=== PATIENT | female | born 1990 | race Caucasian/White ===

== ENCOUNTER 2017-02-08 08:34 | Emergency (ER) | payer OTHER ==
[2017-02-08 09:01] VITALS: BP 110/77
[2017-02-08] MEDS ORDERED: Albuterol 2.5 MG/3 ML NEB.SOL* (0.083%) INH ONE ×3 (09:07→10:43)
[2017-02-08] MEDS ORDERED: predniSONE TAB* 20 MG PO ONE (09:07)
[2017-02-08] MEDS ORDERED: Ipratropium 0.5MG/2.5ML NEB* 0.5 MG/2.5 ML NEB.SOLN INH ONE ×2 (09:07→10:43)
--- NOTE | 2017-02-08 09:11 | UC ---
Respiratory Complaint HPI - HPI Summary HPI Summary: 26 yo female with onset of runny nose and sneezing yesterday during the night she started wheezing and feeling SOB no CP no fever similar episode in grade school remembers needing steroids and ? neb - History of Current Complaint Chief Complaint: UCRespiratory Stated Complaint: RESPIRATORY Time Seen by Provider: 02/08/17 08:54 Hx Obtained From: Patient Hx Last Menstrual Period: 02/05/17 Onset/Duration: Gradual Onset, Lasting Days Timing: Constant Severity Initially: Mild Severity Currently: Moderate Pain Intensity: 2 Pain Scale Used: 0-10 Numeric Character: Cough: Nonproductive Aggravating Factors: Allergens - ?, Exertion, Recumbent Position Alleviating Factors: Upright Position Associated Signs And Symptoms: Positive: Dyspnea, Wheezing, Nasal Congestion Related History: Seasonal Allergies - Allergies/Home Medications Allergies/Adverse Reactions: Allergies Allergy/AdvReac Type Severity Reaction Status Date / Time No Known Allergies Allergy Verified 02/08/17 08:53 Home Medications: Home Medications guaiFENesin LIQ* [Robitussin*] 5 mg PO Q4H PRN 02/08/17 [History Confirmed 02/08] PMH/Surg Hx/FS Hx/Imm Hx Previously Healthy: Yes - Surgical History Surgical History: Yes Surgery Procedure, Year, and Place: Tubal lilgation-2015. FALLOPIAN TUBES REMOVED - SEP 2016 - Family History Known Family History: Positive: Respiratory Disease - COPD, Other - aunt who smoked with lung cancer Negative: Cardiac Disease, Hypertension - Social History Alcohol Use: Rare Substance Use Type: None Smoking Status (MU): Never Smoked Tobacco Review of Systems Constitutional: Negative Skin: Negative Eyes: Negative ENT: Nasal Discharge Respiratory: Shortness Of Breath, Cough Cardiovascular: Negative Gastrointestinal: Negative Genitourinary: Negative Motor: Negative Neurovascular: Negative Musculoskeletal: Negative Neurological: Negative Psychological: Negative All Other Systems Reviewed And Are Negative: Yes Physical Exam Triage Information Reviewed: Yes Appearance: Well-Appearing - but with increased WOB, No Pain Distress, Well- Nourished Vital Signs: Initial Vital Signs Temp 97.8 F 02/08/17 08:54 Pulse 88 02/08/17 08:54 Resp 30 02/08/17 08:54 BP 110/77 02/08/17 08:54 Pulse Ox 96 02/08/17 08:54 Eyes: Positive: Conjunctiva Clear ENT: Positive: Hearing grossly normal, Pharynx normal, Nasal congestion, Nasal drainage, TM bulging - Left Neck: Positive: Supple, Nontender, No Lymphadenopathy Respiratory: Positive: Accessory muscle use, Wheezing Cardiovascular: Positive: RRR, No Murmur. Negative: Tachycardia, Bradycardia Musculoskeletal: Positive: Strength Intact, ROM Intact, No Edema Neurological: Positive: Alert Psychological Exam: Normal Skin Exam: Normal UC Diagnostic Evaluation - Laboratory O2 Sat by Pulse Oximetry: 96 - normal/not hypoxic Re-Evaluation - Re-Evaluation First Eval Re-Evaluation Time: 09:47 Change: Improved - mimimal subjective improvement/still wheezing/better air movement Second Eval Re-Evaluation Time: 10:35 Change: Improved - slight/still wheezing PEAK FLOW average around 210 (250 highest) Third Eval Re-Evaluation Time: 12:06 Change: Improved - PESK FLOW 240 (270 highest) , still wheezing but improved. Decreased WOB Respiratory Course/Dx - Differential Dx/Diagnosis Provider Diagnoses: bronchospasm. suspect due to seasonal allergies Discharge - Discharge Plan Condition: Stable Disposition: HOME Prescriptions: Prednisone [Deltasone] 40 mg PO DAILY #10 tab Patient Education Materials: Bronchospasm (ED) Forms: *Work Release Referrals: ADAMARIS Nelson [Primary Care Provider] - As Soon As Possible Additional Instructions: rest use inhaler as instructed take peak flow meter with you if you are not able to blow above 200 you need to go to the ER see your provider first available appt you may need referral for pulmonary function tests or may need to see and asthma and supplier quality specialist TO ER FOR NEW OR WORSENING SYMPTOMS
[2017-02-08] MEDS ORDERED: Ondansetron ODT TAB* 4 MG PO ONE (10:56)
--- NOTE | 2017-02-08 11:16 | RAD ---
Indication: Wheezing. 2 views of the chest including dual energy PA views demonstrate no mediastinal shift. Heart is of normal size and configuration. Lung whitt demonstrate no pleural fluid, pneumonia or pneumothorax. IMPRESSION: No active cardiopulmonary disease is identified.
[2017-02-08] MEDS ORDERED: Albuterol HFA INHALER* 8 gm MDI INH ONE (12:13)
== END 2017-02-08 12:34 | disposition home or self-care (01) ==
LOC: UCCORT 08:34
DX: J98.01 Acute bronchospasm (principal)
CPT/HCPCS: 71020; 99214; A9270-GY; G0463; J7512; J7644

== ENCOUNTER 2017-10-22 10:12 | Emergency (ER) | payer SELFPAY ==
[2017-10-22 11:16] VITALS: BP 128/80
--- NOTE | 2017-10-22 11:30 | UC ---
Throat Pain/Nasal Nikos HPI - HPI Summary HPI Summary: 26 y/o female presents to the urgent care c/o sore throat, BRANDON, stomach, body aches since last night . Pt states she has Hx of strep. Pain is 9/10 w/ swallowing and couldn't sleep last night. Pt has taking Ibuprofen PO to alleviate symptoms. Pt denies cough, SOB, chest pain, N/V/D. - History of Current Complaint Chief Complaint: UCGeneralIllness Stated Complaint: ST Time Seen by Provider: 10/22/17 11:27 Hx Obtained From: Patient Hx Last Menstrual Period: 02/05/17 Onset/Duration: Gradual Onset, Lasting Days - 1 day, Still Present, Worse Since - today Severity: Moderate Pain Intensity: 9 Pain Scale Used: 0-10 Numeric Cough: None Associated Signs & Symptoms: Positive: Dysphagia, Fever - Epiglottits Risk Factors Epiglottis Risk Factors: Negative - Allergies/Home Medications Allergies/Adverse Reactions: Allergies Allergy/AdvReac Type Severity Reaction Status Date / Time No Known Allergies Allergy Verified 10/22/17 11:16 PMH/Surg Hx/FS Hx/Imm Hx Previously Healthy: Yes Respiratory History: Asthma - as a child - Surgical History Surgical History: Yes Surgery Procedure, Year, and Place: Tubal lilgation-2015. FALLOPIAN TUBES REMOVED - SEP 2016 - Family History Known Family History: Positive: Respiratory Disease - COPD, Other - aunt who smoked with lung cancer Negative: Cardiac Disease, Hypertension - Social History Alcohol Use: Rare Substance Use Type: None Smoking Status (MU): Never Smoked Tobacco Review of Systems Constitutional: Fever, Chills Eyes: Negative ENT: Sore Throat, Nasal Discharge Cardiovascular: Negative Gastrointestinal: Negative Genitourinary: Negative Motor: Negative Neurovascular: Negative Musculoskeletal: Negative Neurological: Headache Psychological: Negative Is Patient Immunocompromised?: No All Other Systems Reviewed And Are Negative: Yes Physical Exam Triage Information Reviewed: Yes Vital Signs: Initial Vital Signs Temp 99.1 F 10/22/17 11:10 Pulse 127 10/22/17 11:10 Resp 18 10/22/17 11:10 BP 128/80 10/22/17 11:10 Pulse Ox 98 10/22/17 11:10 - Additional Comments VITAL SIGNS: Reviewed. GENERAL: Patient is a well developed and nourished female who is sitting comfortable in the examining table. Patient is not in any acute respiratory distress. HEAD AND FACE: No signs of trauma. No ecchymosis, hematomas or skull depressions. No sinus tenderness. EYES: PERRLA, EOMI x 2, No injected conjunctiva, no nystagmus. No photophobia. EARS: Hearing grossly intact. Ear canals and tympanic membranes are within normal limits. MOUTH: Positive pharynx with erythema, exudates, palatal petechiae. B/L tonsillar enlargement with exudate. Uvula in midline. NECK: Supple, trachea is midline, Positive anterior cervical lymphadenopathy, no JVD, no carotid bruit, no c-spine tenderness, neck with full ROM. No meningeal signs, no Kernig's or brudzinskis signs. CHEST: Symmetric, no tenderness at palpation LUNGS: Clear to auscultation bilaterally. No wheezing or crackles. CVS: Regular rate and rhythm, S1 and S2 present, no murmurs or gallops appreciated. ABDOMEN: Soft, non-tender. No signs of distention. No rebound no guarding, and no masses palpated. Bowel sounds are normal. EXTREMITIES: FROM in all major joints, no edema, no cyanosis or clubbing. NEURO: Alert and oriented x 3. No acute neurological deficits. Speech is normal and follows commands. SKIN: Dry and warm Throat Pain/Nasal Course/Dx - Course Course Of Treatment: 26 y/o female presents to the urgent care c/o sore throat, BRANDON, stomach, body aches since last night . Pt states she has Hx of strep. Pain is 9/10 w/ swallowing and couldn't sleep last night. Pt has taking Ibuprofen PO to alleviate symptoms. Pt denies cough, SOB, chest pain, N/V/D. Hx obtained. Pt w/ pharyngitis on examination. Rapid strep ordered: result: positive. Strep pharyngitis. Rx Amoxicillin PO and Ibuprofen PO for pain and swelling. PT Advised on hand washing to avoid spreading. Also advised to rest, eat well and avoid strenuous exercise. If symptoms do not improve or worsen advised to return to the urgent care or f/u with her PCP for further evaluation and treatment. PT understood and agreed w/ plan of care - Differential Dx/Diagnosis Differential Diagnosis/HQI/PQRI: Laryngitis, Mononucleosis, Peritonsillar Abscess, Pharyngitis, Tonsillitis Provider Diagnoses: 1- Strep pharyngitis Discharge - Discharge Plan Condition: Stable Disposition: HOME Prescriptions: Amoxicillin PO (*) [Amoxicillin 500 MG CAP*] 500 mg PO Q12H #20 cap Ibuprofen TAB* [Motrin TAB* 800 MG] 800 mg PO Q6H PRN #30 tab PRN Reason: Pain Patient Education Materials: Strep Throat (ED) Referrals: ADAMARIS Nelson [Primary Care Provider] - 3 Days Additional Instructions: 1- Please take the full course of the antibiotic to avoid resistance. 2-Please take ibuprofen PO q6-8hrs prn as instructed after meals to alleviate pain and swelling. Increase fluid intake, eat well, rest and avoid strenuous exercise 3-If symptoms do not improve or worsen please return to the urgent care or f/u with your PCP for further evaluation and treatment.
== END 2017-10-22 12:10 | disposition home or self-care (01) ==
LOC: UCCORT 10:12
DX: J02.0 Streptococcal pharyngitis (principal)
CPT/HCPCS: 87651; 99212; G0463

== ENCOUNTER 2018-05-22 10:26 | Emergency (ER) | payer OTHER ==
[2018-05-22 10:49] VITALS: BP 134/73
--- NOTE | 2018-05-22 11:49 | UC ---
Back Pain HPI - HPI Summary HPI Summary: Patient states that she's had aching in both sides of her low back for the past 4 days. Yesterday she was lifting a box and the discomfort in her left low back increased and radiated into her left leg. She admits to having problems with her back in the past. She denies any frequency, urgency or burning with urination but notes that her urine does look a bit dark. She has no current numbness to motor weakness to her arms or legs no saddle anesthesia and no bowel or bladder dysfunction, abdominal pain or fever. - History of Current Complaint Chief Complaint: UCBackPain Stated Complaint: BACK/KIDNEY PAIN Time Seen by Provider: 05/22/18 11:38 Hx Obtained From: Patient Hx Last Menstrual Period: 04/07/18 Onset/Duration: Gradual Onset Timing: Constant Pain Intensity: 3 Aggravating Factor(s): Movement Associated Signs And Symptoms: Negative: Fever, Weakness, Abdominal Pain, Bladder Incontinence, Bowel Incontinence - Risk Factors AAA Risk Factors: Negative TAD Risk Factors: Negative Cauda Equina Risk Factors: Negative - Allergies/Home Medications Allergies/Adverse Reactions: Allergies Allergy/AdvReac Type Severity Reaction Status Date / Time No Known Allergies Allergy Verified 05/22/18 10:43 PMH/Surg Hx/FS Hx/Imm Hx Previously Healthy: Yes - Surgical History Surgical History: Yes Surgery Procedure, Year, and Place: Tubal lilgation-2015. FALLOPIAN TUBES REMOVED - SEP 2016 - Family History Known Family History: Positive: Respiratory Disease - COPD, Other - aunt who smoked with lung cancer Negative: Cardiac Disease, Hypertension - Social History Occupation: Employed Full-time Alcohol Use: Rare Substance Use Type: None Smoking Status (MU): Never Smoked Tobacco - Immunization History Most Recent Tetanus Shot: UTD Vaccination Up to Date: Yes Review of Systems Constitutional: Negative Skin: Negative Eyes: Negative ENT: Negative Respiratory: Negative Cardiovascular: Negative Gastrointestinal: Negative Genitourinary: Negative Motor: Negative Neurovascular: Negative Musculoskeletal: Other: - low back pain Neurological: Negative Psychological: Negative Is Patient Immunocompromised?: No All Other Systems Reviewed And Are Negative: Yes Physical Exam Triage Information Reviewed: Yes Appearance: Well-Appearing Vital Signs: Initial Vital Signs Temp 97.5 F 05/22/18 10:44 Pulse 82 05/22/18 10:44 Resp 17 05/22/18 10:44 BP 134/73 05/22/18 10:44 Pulse Ox 99 05/22/18 10:44 Vital Signs Reviewed: Yes Eyes: Positive: Conjunctiva Clear ENT: Positive: Normal ENT inspection Neck: Positive: Supple, Nontender, No Lymphadenopathy Respiratory: Positive: Lungs clear, Normal breath sounds Cardiovascular: Positive: RRR, No Murmur Abdomen Description: Positive: Nontender, No Organomegaly, Soft. Negative: Bruit, CVA Tenderness (R), CVA Tenderness (L), Distended, Guarding Bowel Sounds: Positive: Present Musculoskeletal: Positive: No Edema, Other: - Cervical, thoracic and lumbar spine are without deformity or tenderness. Patient notes tenderness with palpation over the paraspinal muscles in the lumbar region. Range of motion in the neck and back is intact but patient notes increased discomfort with flexion at the waist. She has no saddle anesthesia. She is 5 out of 5 strength and 2+ reflexes 4. No tenderness to palpation to either sciatic notch and negative straight leg raise bilaterally. She is normal steady gait. Neurological: Positive: Alert Psychological: Positive: Age Appropriate Behavior Skin Exam: Normal Skin: Negative: rashes Diagnostics - Laboratory Diagnostic Studies Completed/Ordered: u/a=unremarkable. hcg=neg Back Pain Course/Dx - Course Course Of Treatment: no concern for infection, acute abdomen or cauda equina. hx supports a radiculopathy thus will tx with mm relaxor and steroid. - Differential Dx/Diagnosis Provider Diagnoses: Acute low back pain. Episodic lumbar radiculopathy. Discharge - Sign-Out/Discharge Documenting (check all that apply): Patient Departure All imaging exams completed and their final reports reviewed: No Studies - Discharge Plan Condition: Stable Disposition: HOME Prescriptions: Cyclobenzaprine TAB* [Flexeril 10 MG TAB*] 10 mg PO TID PRN #10 tab MDD 3 PRN Reason: Pain - Back methylPREDNISolone [Medrol Dosepak 4 MG*] 0 mg PO .SEE LIVAN INSTRUCTION #1 tab Patient Education Materials: Acute Low Back Pain (ED), Lumbar Radiculopathy (ED ) Forms: *Work Release Referrals: ADAMARIS Nelson [Family Provider] - 5 Days - Billing Disposition and Condition Condition: STABLE Disposition: Home
== END 2018-05-22 12:00 | disposition home or self-care (01) ==
LOC: UCCORT 10:26
DX: M54.5 Low back pain (principal); M54.16 Radiculopathy, lumbar region
CPT/HCPCS: 81003; 84702; 99212; G0463

== ENCOUNTER 2018-06-21 20:54 | Emergency (ER) | payer OTHER ==
--- OUTSIDE RECORDS SUMMARY | 2018-06-21 21:07 | XMS REPORT ---
:1990 External Reference #:[id number] Author Organization [facility] Address [address] [place] [address] Phone [phone] Care Team Providers Name Role Phone Derek Villalobos MD Care Team Information [employer] Unavailable Ladan Velázquez PA Primary Care Physician Unavailable Payers Type Date Identification Numbers Payment Provider Subscriber Commercial Expires: Policy Number: [place] [employer] Raiza Monte 2012 [id number] PayID: [id number] [address] [place] [address] Medicaid Expires: 2018 Policy Number: [id number] Medicaid Raiza Monte PayID: [id number] [address] [place] [address] Commercial Policy Number: [id number] [place] Medicaid Raiza Monte PayID: [id number] [address] [place] [address] Problems Description No Information Family History Date Family Member(s) Problem(s) Comments Father Alive Mother Alive Paternal Grandfather due to Cancer () : (age 93 Paternal Grandmother due to Broke Ribs in Hospital Years) Maternal Grandfather due to Unknown () Causes : (age 78 Maternal Grandmother due to Unknown Years) Causes Social History Type Date Description Comments Marital Status Single Occupation [employer] Use Denies alcohol use Smoking Patient has never smoked Recreational Drug Use Denies Drug Use Exercise Type/Frequency Does not exercise Allergies, Adverse Reactions, Alerts Date Description Reaction Status Severity Comments 05/28/2018 NKDA active Medications Medication Date Status Form Strength Qnty SIG Indications Ordering Provider No Active 05/28/2018 Active Unknown Medications Results Description No Information Procedures Date CPT Code Description Status 05/28/2018 92884 Eye Exam New Patient Intermediate Completed 12/18/2014 99784 Anesthesia, Tubal Ligation/Transection Completed Plan of Care 05/28/2018 - Vladimir Nava [id number] Acute atopic conjunctivitis, bilateralComments:- warm compresses- artificial tears: can use 4-6 times daily- neomycin/polymyxin/dexamethasone 1 drop each eye 3 times daily for 5 dayscan also consider over the counter:- topical anti-histamine such as zaditor in each eye dailyFollow up:please call with ? or concerns
--- NOTE | 2018-06-21 21:10 | UC ---
Throat Pain/Nasal Nikos HPI - HPI Summary HPI Summary: 27 y/o female presents to the urgent care c/o sore throat and B/L ear pain since yesterday. Pt reports pain w/ swallowing is 7/10 and radiating to her Rt ear. Pt has mild nasal congestion w/ clear nasal discharge. Pt has not taking anything to alleviate symptoms. Pt denies fever, chills, cough, SOB, chest pain , abdominal pain, N/V/D. - History of Current Complaint Stated Complaint: SORE THROAT,EARS Time Seen by Provider: 06/21/18 21:08 Hx Obtained From: Patient Hx Last Menstrual Period: 04/07/18 Onset/Duration: Gradual Onset, Lasting Days - 1 day, Still Present, Worse Since - today Severity: Moderate Pain Intensity: 7 - sore throat Pain Scale Used: 0-10 Numeric Cough: None Associated Signs & Symptoms: Positive: Dysphagia, Nasal Discharge - clear. Negative: Fever - Epiglottits Risk Factors Epiglottis Risk Factors: Negative - Allergies/Home Medications Allergies/Adverse Reactions: Allergies Allergy/AdvReac Type Severity Reaction Status Date / Time No Known Allergies Allergy Verified 06/21/18 21:19 PMH/Surg Hx/FS Hx/Imm Hx Previously Healthy: Yes Respiratory History: Asthma - as a child - Surgical History Surgical History: Yes Surgery Procedure, Year, and Place: Tubal lilgation-2015. FALLOPIAN TUBES REMOVED - SEP 2016 - Family History Known Family History: Positive: Respiratory Disease - COPD, lung CA Negative: Cardiac Disease, Hypertension - Social History Occupation: Employed Full-time Lives: With Family Alcohol Use: Rare Substance Use Type: None Smoking Status (MU): Never Smoked Tobacco - Immunization History Most Recent Tetanus Shot: UTD Vaccination Up to Date: Yes Review of Systems Constitutional: Negative Skin: Negative Eyes: Negative ENT: Ear Ache - B/L ear pain and pressure, Nasal Discharge - clear Respiratory: Negative Cardiovascular: Negative Gastrointestinal: Negative Genitourinary: Negative Motor: Negative Neurovascular: Negative Musculoskeletal: Negative Neurological: Negative Psychological: Negative Is Patient Immunocompromised?: No All Other Systems Reviewed And Are Negative: Yes Physical Exam - Summary Physical Exam Summary: VITAL SIGNS: Reviewed. GENERAL: Patient is a well developed and nourished obese female who is sitting comfortable in the examining table. Patient is not in any acute respiratory distress. HEAD AND FACE: No signs of trauma. No ecchymosis, hematomas or skull depressions. No sinus tenderness. EYES: PERRLA, EOMI x 2, No injected conjunctiva, no nystagmus. No photophobia. EARS: Hearing grossly intact. Ear canals and tympanic membranes are within normal limits. MOUTH: Positive pharynx with erythema, no exudates, palatal petechiae. B/L tonsillar enlargement with no exudate. Uvula in midline. NECK: Supple, trachea is midline, Positive anterior cervical lymphadenopathy, no JVD, no carotid bruit, no c-spine tenderness, neck with full ROM. No meningeal signs, no Kernig's or brudzinskis signs. CHEST: Symmetric, no tenderness at palpation LUNGS: Clear to auscultation bilaterally. No wheezing or crackles. CVS: Regular rate and rhythm, S1 and S2 present, no murmurs or gallops appreciated. ABDOMEN: Soft, non-tender. No signs of distention. No rebound no guarding, and no masses palpated. Bowel sounds are normal. EXTREMITIES: FROM in all major joints, no edema, no cyanosis or clubbing. NEURO: Alert and oriented x 3. No acute neurological deficits. Speech is normal and follows commands. SKIN: Dry and warm Triage Information Reviewed: Yes Throat Pain/Nasal Course/Dx - Course Course Of Treatment: 27 y/o female presents to the urgent care c/o sore throat and B/L ear pain since yesterday. Pt reports pain w/ swallowing is 7/10 and radiating to her Rt ear. Pt has mild nasal congestion w/ clear nasal discharge. Pt has not taking anything to alleviate symptoms. Pt denies fever, chills, cough , SOB, chest pain, abdominal pain, N/V/D. Hx obtained. Rapid strep ordered, result: negative. Viral pharyngitis.Pt Rx ibuprofen PO to alleviates symptoms of pain and swelling. Advised on hand washing to avoid spreading. Pt advised to rest, eat well and avoid strenuous exercise. If symptoms do not improve or worsen advised to return to the urgent care or f/u with her PCP for further evaluation and treatment. Pt understood and agreed w/ plan of care. - Differential Dx/Diagnosis Differential Diagnosis/HQI/PQRI: Mononucleosis, Otitis Media, Pharyngitis, Sinusitis, Tonsillitis Provider Diagnoses: 1- Pharyngitis Discharge - Sign-Out/Discharge Documenting (check all that apply): Patient Departure - D/c home All imaging exams completed and their final reports reviewed: No Studies - Discharge Plan Condition: Stable Disposition: HOME Prescriptions: Ibuprofen TAB* [Motrin TAB* 600 MG] 600 mg PO Q6H PRN #30 tab PRN Reason: Sore Throat Patient Education Materials: Pharyngitis (ED) Forms: *Work Release Referrals: Simin Brand MD [Primary Care Provider] - 3 Days Additional Instructions: 1-Please take ibuprofen PO q6-8hrs prn as instructed after meals to alleviate pain and swelling. Increase fluid intake, eat well, rest and avoid strenuous exercise 2-If symptoms do not improve or worsen please return to the urgent care or f/u with your PCP for further evaluation and treatment. - Billing Disposition and Condition Condition: STABLE Disposition: Home
[2018-06-21 21:18] VITALS: BP 104/75
== END 2018-06-21 21:50 | disposition home or self-care (01) ==
LOC: UCCORT 20:54
DX: J02.9 Acute pharyngitis, unspecified (principal)
CPT/HCPCS: 87651; 99212; G0463

== ENCOUNTER 2018-07-30 14:21 | Emergency (ER) | payer OTHER ==
[2018-07-30 15:35] VITALS: BP 118/66
--- NOTE | 2018-07-30 15:38 | UC ---
Throat Pain/Nasal Nikos HPI - History of Current Complaint Chief Complaint: UCGeneralIllness Stated Complaint: ST,BRANDON,NAUSEA,BILATERAL EAR COMPLAINT Time Seen by Provider: 07/30/18 15:37 Hx Last Menstrual Period: 07/24/18 ?: No - BTL Onset/Duration: Sudden Onset Pain Intensity: 6 Pain Scale Used: 0-10 Numeric Associated Signs & Symptoms: Positive: Other - nausea, tenderness L cervical. - Allergies/Home Medications Allergies/Adverse Reactions: Allergies Allergy/AdvReac Type Severity Reaction Status Date / Time No Known Allergies Allergy Verified 07/30/18 15:29 Home Medications: Home Medications Acetaminophen [Extra Strength Non-Aspirin] 1,000 mg PO ONCE PRN 07/30/18 [ History Confirmed 07/30/18] PMH/Surg Hx/FS Hx/Imm Hx Previously Healthy: Yes Endocrine History: Other - obesity - Surgical History Surgical History: Yes Surgery Procedure, Year, and Place: Tubal lilgation-2015. FALLOPIAN TUBES REMOVED - SEP 2016 - Family History Known Family History: Positive: Respiratory Disease - COPD, lung CA, Other - aunt who smoked with lung cancer Negative: Cardiac Disease, Hypertension - Social History Alcohol Use: Rare Substance Use Type: None Smoking Status (MU): Never Smoked Tobacco - Immunization History Most Recent Tetanus Shot: UTD Vaccination Up to Date: Yes Review of Systems All Other Systems Reviewed And Are Negative: Yes Constitutional: Positive: Fever, Chills, Fatigue Skin: Positive: Negative Eyes: Positive: Negative ENT: Positive: Sore Throat, Ear Ache Respiratory: Positive: Negative Cardiovascular: Positive: Negative Gastrointestinal: Positive: Nausea Neurological: Positive: Headache. Negative: Weakness Physical Exam Triage Information Reviewed: Yes Appearance: Well-Appearing, No Pain Distress Vital Signs: Initial Vital Signs Temp 97.6 F 07/30/18 15:30 Pulse 101 07/30/18 15:30 Resp 24 07/30/18 15:30 BP 118/66 07/30/18 15:30 Pulse Ox 99 07/30/18 15:30 Vital Signs Reviewed: Yes Eye Exam: Normal ENT: Positive: Pharyngeal erythema, TMs normal, Tonsillar swelling, Tonsillar exudate, Uvula midline. Negative: Hoarse voice, Sinus tenderness Neck: Positive: Supple, Tenderness @ - L cervical lymphadenopathy, Enlarged Nodes @ - L cervical. Negative: Nuchal Rigidity Respiratory Exam: Normal Cardiovascular Exam: Normal Neurological: Positive: Alert Skin Exam: Normal Throat Pain/Nasal Course/Dx - Course Assessment/Plan: Sore throat, lymphadenopathy on L side, chills, no cough, and exudates x3 days. +exposure to strep at home. rapid strep: +. will tx - Differential Dx/Diagnosis Differential Diagnosis/HQI/PQRI: Pharyngitis, Tonsillitis, URI Provider Diagnoses: strep pharyngitis Discharge - Sign-Out/Discharge Documenting (check all that apply): Patient Departure All imaging exams completed and their final reports reviewed: No Studies - Discharge Plan Condition: Good Disposition: HOME Patient Education Materials: Pharyngitis (ED) Referrals: Simin Brand MD [Primary Care Provider] - - Billing Disposition and Condition Condition: GOOD Disposition: Home
== END 2018-07-30 16:01 | disposition home or self-care (01) ==
LOC: UCCORT 14:21
DX: J02.0 Streptococcal pharyngitis (principal); B95.0 Streptococcus, group A, as the cause of diseases classified elsewhere
CPT/HCPCS: 87651; 99212; G0463

== ENCOUNTER 2019-07-26 16:39 | Emergency (ER) | payer OTHER ==
[2019-07-26 17:00] VITALS: BP 108/73
--- NOTE | 2019-07-26 17:38 | UC ---
Hand/Wrist HPI - HPI Summary HPI Summary: Pt c/o of bilateral wrist pain that has worsened over the last two weeks. 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 Pt denies recent trauma or frequent repetitive work. Pt states that pain worsens at end of day and has episodic numbness and tingling in distal finger tips in bilateral hands - History Of Current Complaint Chief Complaint: UCUpperExtremity Stated Complaint: BILATERAL WRIST PAIN Time Seen by Provider: 07/26/19 17:25 Hx Obtained From: Patient Hx Last Menstrual Period: 07/10/19 has had tubal ?: No Onset/Duration: Gradual Onset, Lasting Weeks, Still Present Severity Initially: Mild Severity Currently: Moderate Pain Intensity: 6 Character Of Pain: Dull, Aching, Stiffness, Burning Alleviating Factor(s): Rest Associated Signs And Symptoms: Positive: Weakness, Numbness/Tingling Related History: Dominant Hand Right - Risk Factors Compartment Syndrome Risk Factors: Pain - Allergies/Home Medications Allergies/Adverse Reactions: Allergies Allergy/AdvReac Type Severity Reaction Status Date / Time No Known Allergies Allergy Verified 07/26/19 16:59 PMH/Surg Hx/FS Hx/Imm Hx Previously Healthy: Yes - Surgical History Surgical History: Yes Surgery Procedure, Year, and Place: Tubal lilgation-2015. FALLOPIAN TUBES REMOVED - SEP 2016. CHOLYCYSTECTOMY-2017. TONSILLECTOMY DECEMBER 2018 - Family History Known Family History: Positive: Respiratory Disease - COPD, lung CA, Other - aunt who smoked with lung cancer, Non-Contributory Negative: Cardiac Disease, Hypertension - Social History Occupation: Employed Full-time Lives: With Family Alcohol Use: Rare Substance Use Type: None Smoking Status (MU): Never Smoked Tobacco Have You Smoked in the Last Year: No - Immunization History Most Recent Tetanus Shot: UTD Vaccination Up to Date: Yes Review of Systems All Other Systems Reviewed And Are Negative: Yes Constitutional: Positive: Negative Skin: Positive: Negative Eyes: Positive: Negative ENT: Positive: Negative Respiratory: Positive: Negative Cardiovascular: Positive: Negative Gastrointestinal: Positive: Negative Genitourinary: Positive: Negative Motor: Positive: Weakness, Other - arthralgia Neurovascular: Positive: Negative Musculoskeletal: Positive: Arthralgia - bilateral Neurological: Positive: Negative Psychological: Positive: Negative Is Patient Immunocompromised?: No Physical Exam Triage Information Reviewed: Yes Appearance: Pain Distress - with wrsit evaluation Vital Signs: Initial Vital Signs Temp 97.8 F 07/26/19 16:56 Pulse 74 07/26/19 16:56 Resp 16 07/26/19 16:56 BP 108/73 07/26/19 16:56 Pulse Ox 100 07/26/19 16:56 Vital Signs Reviewed: Yes Eye Exam: Normal ENT Exam: Normal Dental Exam: Normal Neck exam: Normal Respiratory: Positive: No respiratory distress Musculoskeletal Exam: Normal Musculoskeletal: Positive: Strength Limited @ - bilateral wrist with pressure and movement Neurological Exam: Normal Psychological Exam: Normal Skin Exam: Normal Hand/Wrist Course/Dx - Differential Dx/Diagnosis Differential Diagnosis/HQI/PQRI: Bursitis, Carpal Tunnel Syndrome, Tendonitis Provider Diagnosis: Bilateral wrist pain Discharge ED - Sign-Out/Discharge Documenting (check all that apply): Patient Departure All imaging exams completed and their final reports reviewed: No Studies - Discharge Plan Condition: Stable Disposition: HOME Patient Education Materials: Arthralgia (ED), Safe Use of NSAIDs (ED) Referrals: Maryuri Newell NP [Primary Care Provider] - If Needed Konstantin Orozco MD [Medical Doctor] - If Needed Milly Asif MD [Medical Doctor] - If Needed - Billing Disposition and Condition Condition: STABLE Disposition: Home
== END 2019-07-26 17:48 | disposition home or self-care (01) ==
LOC: UCCORT 16:39
DX: M25.531 Pain in right wrist (principal); M25.532 Pain in left wrist; R20.0 Anesthesia of skin; R20.2 Paresthesia of skin
CPT/HCPCS: 99211; G0463

== ENCOUNTER 2019-09-25 13:18 | Emergency (ER) | payer OTHER ==
--- OUTSIDE RECORDS SUMMARY | 2019-09-25 14:04 | XMS REPORT | Continuity of Care Document ---
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 Onset: 08/07/2015 subsequent encounter Body mass index 30+ - obesity Perez Owens M.D. Onset: 08/07/2015 Ingestion dermatitis due to food Pema Farrell M.D. Onset: 07/24/2015 Social History Type Date Description Comments Sex Unknown ETOH Use Rarely consumes alcohol Tobacco Use Start: Unknown Patient has never smoked Recreational Drug Use Never Used Drugs Allergies, Adverse Reactions, Alerts Description No Known Drug Allergies Medications Description No Active Medications Immunizations CPT Code Status Date Vaccine Lot # [id number] Given Unknown Influenza Vaccine Vital Signs Date Vital Result Comment 09/15/2019 9:48am Height 63.75 inches 5'3.75" Weight 228.00 lb Weight 103.421 kg Respiratory Rate 18 /min Heart Rate 74 /min O2 % BldC Oximetry 98 % BP Systolic 101 mmHg BP Diastolic 60 mmHg BMI (Body Mass Index) 39.4 kg/m2 10/29/2016 11:03am Height 63.75 inches 5'3.75" Weight 223.00 lb Weight 101.153 kg Respiratory Rate 16 /min Heart Rate 69 /min O2 % BldC Oximetry 98 % BP Systolic 105 mmHg BP Diastolic 73 mmHg BMI (Body Mass Index) 38.6 kg/m2 Results Test Acquired Date Facility Test Result H/L Range Note Laboratory test 09/15/2019 [facility] Egg (Yolk) < 0.10 kU/L Class [address] [place] [address] [phone] Egg White 0.23 kU/L Class 0/I 1 Cat Hair/Dander <0.10 kU/L Class 0 Dog Hair/Dander <0.10 kU/L Class 0 D Farinae Mite 0.37 kU/L Class I D Pteronyssinus 0.46 kU/L Class I Rast Common Silver Birch T3 <pending> [place],White <0.10 kU/L Class 0 Maple/Beals Ige T001 <0.10 kU/L Class 0 Luis,White <0.10 kU/L Class 0 [place] Tree <0.10 kU/L Class 0 Elm,Guatemalan (White) <0.10 kU/L Class 0 Forrest,White <0.10 kU/L Class 0 Yecenia,Pearson Ige T002 <0.10 kU/L Class 0 Beech (Guatemalan) T005 <0.10 kU/L Class 0 Rast Durham Black T10 <pending> T022 Pecan Tree <0.10 kU/L Class 0 Guttenberg,Guatemalan T061 <0.10 kU/L Class 0 Redby,Black <0.10 kU/L Class 0 Abner <0.10 kU/L Class 0 Orchard Grass <0.10 kU/L Class 0 Ragweed,Short/ <0.10 kU/L Class 0 Bailey Elder,Rough W016 <0.10 kU/L Class 0 Rast Common Pigweed <pending> Cocklebur <0.10 kU/L Class 0 2 Rast Wagner's Quarters w10 <pending> Rast Plantain, North Korean W9 <pending> Alternaria Alternata <0.10 kU/L Class 0 Apergillis Fumigatus Ige <0.10 kU/L Class 0 Cladosporium Herbarum <0.10 kU/L Class 0 Setomelanomma Rostrat M008 Ige <0.10 kU/L Class 0 Penicillium Not <0.10 kU/L Class 0 Allergy Flea (Cat/Dog) Ige <pending> Birch,White <0.10 kU/L Class 0 Reeves,White <0.10 kU/L Class 0 Plantain,North Korean <0.10 kU/L Class 0 Pigweed,Rough <0.10 kU/L Class 0 Lambs Quarter <0.10 kU/L Class 0 Forrest,White <pending> Redby,Black <pending> Durham Tree Ige T010 <0.10 kU/L Class 0 1 Levels of Specific IgE Class Description of Class ----- < 0.10 0 Negative 0.10 - 0.31 0/I Equivocal/Low 0.32 - 0.55 I Low 0.56 - 1.40 II Moderate 1.41 - 3.90 III High 3.91 - 19.00 IV Very High 19.01 - 100.00 V Very High >100.00 Very High 2 Test(s) [id number]-WeG Julius Luna were developed and had performance characteristics determined by [facility]. These tests have not been cleared or approved by the U.S. Food and Drug Administration. The FDA has determined that such clearance or approval is not necessary. These tests are used for clinical purposes. These should not be regarded as investigational or for research. Performed at: [address] [id number] Rabbler: Viridiana Toure MD, Phone: [phone] Procedures Description No Information Available Medical Devices Description No Information Available Encounters Type Date Location Provider Dx Diagnosis Office Visit 09/15/2019 [facility] Trey Jin.9 Allergic rhinitis, 10:00a LAKE unspecified Z91.012 Allergy to eggs Assessments Date Code Description Provider 09/15/2019 J30.9 Allergic rhinitis, unspecified LAKE Jin 09/15/2019 Z91.012 Allergy to eggs LAKE Jin Plan of Treatment Future Appointment(s):09/29/2019 10:20 am - [facility] Jin at [facility]09/29/2019 11:00 am - Allergy Testing at [facility] Functional Status Description No Information Available Mental Status Description No Information Available Referrals Description No Information Available
[2019-09-25 14:55] VITALS: BP 107/67
--- NOTE | 2019-09-25 14:57 | UC ---
Knee Pain HPI - HPI Summary HPI Summary: Pt was at work today when she tripped and fell landing on both knees and catching herself with her outstretched right hand. Ambulates without difficulty. Denies hitting her head and no neck pain. - History of Current Complaint Chief Complaint: UCGeneralIllness Stated Complaint: RIGHT KNEE AND WRIST INJURY S/P FALL AT WORK Time Seen by Provider: 09/25/19 14:46 Hx Obtained From: Patient Hx Last Menstrual Period: 08/28/19 (b/l salpingectomy) ?: No Onset/Duration: Sudden Onset Severity Initially: Moderate Severity Currently: Mild Pain Intensity: 6 Character: Dull, Aching Aggravating Factor(s): Movement Alleviating Factor(s): Rest Associated Signs And Symptoms: Positive: Negative Able to Bear Weight: Yes - Allergies/Home Medications Allergies/Adverse Reactions: Allergies Allergy/AdvReac Type Severity Reaction Status Date / Time No Known Allergies Allergy Verified 09/25/19 14:47 PMH/Surg Hx/FS Hx/Imm Hx Previously Healthy: Yes - Surgical History Surgical History: Yes Surgery Procedure, Year, and Place: Tubal lilgation-2015. FALLOPIAN TUBES REMOVED - SEP 2016. CHOLYCYSTECTOMY-2017. TONSILLECTOMY DECEMBER 2018 - Family History Known Family History: Positive: Respiratory Disease - COPD, lung CA, Other - aunt who smoked with lung cancer, Non-Contributory Negative: Cardiac Disease, Hypertension - Social History Alcohol Use: Rare Substance Use Type: None Smoking Status (MU): Never Smoked Tobacco Have You Smoked in the Last Year: No - Immunization History Most Recent Tetanus Shot: UTD Vaccination Up to Date: Yes Review of Systems All Other Systems Reviewed And Are Negative: Yes Musculoskeletal: Positive: Other: - Bilateral knee pain but right is worse than the left. Right wrist pain mostly with flexion and extension Is Patient Immunocompromised?: No Physical Exam Triage Information Reviewed: Yes Appearance: Well-Appearing, No Pain Distress, Well-Nourished Vital Signs: Initial Vital Signs Temp 97.7 F 09/25/19 14:48 Pulse 80 09/25/19 14:48 Resp 22 09/25/19 14:48 BP 107/67 09/25/19 14:48 Pulse Ox 100 09/25/19 14:48 Vital Signs Reviewed: Yes Musculoskeletal: Positive: Strength Intact, ROM Intact, Other: - Patellar and knee ligaments are intact. Both knees with full ROM without pain. Right knee with minial pain on palpation over patella, no bruising, erythema, swelling or deformity. Right wrist with full ROM, minimal pain with flexion/ extension. Good finger strength with flexion/extension against resistance. Scaphoid non- tender. Knee Pain Course/Dx - Course Course Of Treatment: Right knee x-ray: Negative Right wrist x-ray: FINDINGS: FINDINGS: The soft tissues are unremarkable. The bone mineralization is within normal limits. There is a well-corticated ossific fragment seen along the ulnar styloid process.. Anatomic alignment is maintained. The joint spaces are preserved. IMPRESSION: 1. Chronic appearing ossific fragment about the ulnar styloid process. Correlate with point tenderness. The pt has minimal tenderness over the distal wrist ulnar side, but not at the styloid process. A cock-up splint was applied and pt is to follow up with the orthopedist in the next 1-2 days. - Differential Dx/Diagnosis Provider Diagnosis: Wrist sprain, Contusion of knee, left, Contusion of right knee Discharge ED - Sign-Out/Discharge Documenting (check all that apply): Patient Departure All imaging exams completed and their final reports reviewed: Yes - Discharge Plan Condition: Good Disposition: HOME Patient Education Materials: Wrist Fracture in Adults (ED) Forms: *Work Release Referrals: Sushil Hess MD [Medical Doctor] - Maryuri Newell NP [Primary Care Provider] - Additional Instructions: There is a possibility of a fracture of the right ulnar styloid process, but it could also be a chronic fragment. You are to call the orthopedist tomorrow and make an appointment to be seen in the next 1-2 days. Elevate as much as possible, apply ice to the sore area, Tylenol for pain. Keep the wrist splint on until the orthopedist says you can remove it. - Billing Disposition and Condition Condition: GOOD Disposition: Home
== END 2019-09-25 16:43 | disposition home or self-care (01) ==
LOC: UCCORT 13:18
DX: S63.501A Unspecified sprain of right wrist, initial encounter (principal); S80.02XA Contusion of left knee, initial encounter; S80.01XA Contusion of right knee, initial encounter; M89.8X6 Other specified disorders of bone, lower leg; W01.0XXA Fall on same level from slipping, tripping and stumbling without subsequent striking against object, initial encounter; Y92.9 Unspecified place or not applicable; Y99.0 Civilian activity done for income or pay
CPT/HCPCS: 99212; G0463

== ENCOUNTER 2019-10-06 06:48 | Day surgery (SDC) | payer OTHER ==
[~2019-10-06 06:48] MED LIST: Buffered Lidocaine 1% SYRIN* 1 ML/SYRINGE INTRADERM ONE; Lactated Ringers 1000 ML Bag* 1,000 ML IV SCH
[2019-10-06] MEDS ORDERED: Midazolam* 1 MG/ML 2 ML VIAL (2 MG) ONE (08:25)
[2019-10-06] MEDS ORDERED: fentaNYL* 50 MCG/ML 2 ML VIAL (100 MCG VIAL) ONE (08:25)
[2019-10-06] MEDS ORDERED: Bupivacaine 0.25% SDV* 30 ML ONE (08:28)
[2019-10-06] MEDS ORDERED: Lidocaine 2% PF * 5 ML VIAL ONE (08:41)
[2019-10-06] MEDS ORDERED: Propofol* 10 MG/ML 20 ML BTL ONE (08:49)
[2019-10-06] MEDS ORDERED: Dexamethasone IV* 4 MG/ML 1 ML (4 MG) ONE (08:49)
[2019-10-06] MEDS ORDERED: Ondansetron INJ* 2 MG/ML VIAL ONE (08:49)
[2019-10-06] MEDS ORDERED: Acetaminophen TAB* 325 MG PO PRN (09:06)
[2019-10-06] MEDS ORDERED: Naloxone* 0.4 MG/ML 1 ML VIAL IV PRN (09:06)
[2019-10-06] MEDS ORDERED: PROCHLORPERAZINE INJ 5 MG/ML 2 ML VIAL IV PRN (09:06)
[2019-10-06] MEDS ORDERED: Ketorolac INJ* 30 MG/ML 1 ML VIAL ONE (09:29)
[2019-10-06] MEDS ORDERED: PROCHLORPERAZINE INJ 5 MG/ML 2 ML VIAL ONE (09:42)
[2019-10-06] MEDS ORDERED: HYDROcodone/ACETAMIN 5-325 MG* 1 TAB ONE (09:45)
[2019-10-06 10:17] VITALS: BP 95/56
--- NOTE | 2019-10-06 14:56 | OP ---
OPERATIVE REPORT: DATE OF OPERATION: 10/06/19 DATE OF : 88 SURGEON: Konstantin Orozco MD DRIVING TEACHER: TARAH Malik ANESTHESIOLOGIST: Dr. White. ANESTHESIA: General. PRE-OP DIAGNOSES: 1. Right carpal tunnel syndrome. 2. Right median nerve compression in the proximal forearm. POST-OP DIAGNOSES: 1. Right carpal tunnel syndrome. 2. Right median nerve compression in the proximal forearm. OPERATIVE PROCEDURE: 1. Right endoscopic carpal tunnel release. 2. Right median nerve decompression in the proximal forearm with release of the lacertus fibrosus. INDICATIONS: Ms. Monte has the aforementioned conditions. We had talked about treatment options, r isks and benefits. She wished to proceed. ESTIMATED BLOOD LOSS: 2 mL. COMPLICATIONS: None. FINDINGS: See above and below. DESCRIPTION OF PROCEDURE: Ms. Monte was seen in the preoperative holding area. The correct site, si de, and procedure were identified. We came back to the operating room. The arm was prepped and drap ed in the usual fashion and time-out was performed. The arm was exsanguinated with the Esmarch and the tourniquet was inflated. I made a 1 cm incision j ust ulnar to the palmaris longus tendon. Dissection was carried down. The distal antebrachial fasci a was spread transversely and a 2-prong skin hook was placed underneath it. The carpal tunnel was di lated. The MicroAire endoscopic carpal tunnel system was introduced. When it was in the appropriate location, I elevated the blade. The release was carried out from distal to proximal. Once I comple shreyas the release distally, I released the distal antebrachial fascia proximally with the tenotomy scis sors. Wound was irrigated out and closed with 4-0 Prolene suture. I then made a 2 to 3 cm incision over the proximal forearm just over the lacertus fibrosus. Dissecti on was carried down bluntly. [employer]-[place] retractors were placed to expose the fascia including the lac ertus fibrosus. I then went ahead and released the lacertus fibrosus with the tenotomy scissors. Th e release was completed distally and proximally. Once there was no compression there, the wound was irrigated out. The skin was closed with 4-0 Monocryl suture. Steri-Strips were applied to both side s. 0.25% Marcaine was infiltrated. Soft dressings were applied and she was taken to the recovery ro in stable condition. [id number]/[facility] #: [id number]
== END 2019-10-06 10:27 | disposition home or self-care (01) ==
LOC: OREAST 06:48
PROVIDERS: ATTEND Orthopaedic Surgery Hand Surgery
DX: G56.01 Carpal tunnel syndrome, right upper limb (principal); G56.11 Other lesions of median nerve, right upper limb
CPT/HCPCS: J0780; J1100; J1885; J2250; J2405; J2704; J3010; J3490

== ENCOUNTER 2019-10-20 06:18 | Day surgery (SDC) | payer OTHER ==
[~2019-10-20 06:18] MED LIST changes: +Dexamethasone IV* 4 MG/ML 1 ML (4 MG) IV SLOW PU ONE; +Dexamethasone IV* 4 MG/ML 1 ML (4 MG) ONE; +Famotidine IV* 10 MG/ML 2 ML (20 mg) IV ONE; +Famotidine IV* 10 MG/ML 2 ML (20 mg) ONE
[2019-10-20] MEDS ORDERED: Bupivacaine 0.25% SDV* 30 ML ONE (07:08)
[2019-10-20] MEDS ORDERED: Ketorolac INJ* 30 MG/ML 1 ML VIAL ONE (07:20)
[2019-10-20] MEDS ORDERED: Lidocaine 2% PF * 5 ML VIAL ONE (07:20)
[2019-10-20] MEDS ORDERED: Ondansetron INJ* 2 MG/ML VIAL ONE (07:20)
[2019-10-20] MEDS ORDERED: Propofol* 10 MG/ML 20 ML BTL ONE (07:20)
[2019-10-20] MEDS ORDERED: Midazolam* 1 MG/ML 2 ML VIAL (2 MG) ONE (07:21)
[2019-10-20] MEDS ORDERED: fentaNYL* 50 MCG/ML 5 ML VIAL (250 MCG VIAL) ONE (07:22)
[2019-10-20] MEDS ORDERED: DiMENhydriNATE IV* 50 MG/ML VIAL IV PUSH PRN (07:47)
[2019-10-20] MEDS ORDERED: oxyCODONE/Acetamin 5/325 MG* TAB PO PRN (07:47)
[2019-10-20] MEDS ORDERED: Ondansetron INJ* 2 MG/ML VIAL IV PRN (07:47)
[2019-10-20] MEDS ORDERED: fentaNYL* 50 MCG/ML 2 ML VIAL (100 MCG VIAL) IV PRN (07:47)
[2019-10-20] MEDS ORDERED: Naloxone* 0.4 MG/ML 1 ML VIAL IV PRN (07:47)
[2019-10-20] MEDS ORDERED: DiMENhydriNATE IV* 50 MG/ML VIAL ONE (09:17)
[2019-10-20 09:52] VITALS: BP 109/66
--- NOTE | 2019-10-21 02:15 | OP ---
DATE OF OPERATION: 10/20/19 - [facility] DATE OF : 88 SURGEON: Konstantin Orozco MD MAKE UP ARTIST: TARAH Malik ANESTHESIOLOGIST: Dr. Auguste. ANESTHESIA: General. PRE-OP DIAGNOSES: 1. Left carpal tunnel syndrome. 2. Left median nerve compression in the proximal forearm. POST-OP DIAGNOSES: 1. Left carpal tunnel syndrome. 2. Left median nerve compression in the proximal forearm. OPERATIVE PROCEDURE: 1. Left endoscopic carpal tunnel release. 2. Decompression of the left median nerve in the proximal forearm with release of the lacertus fibrosus. INDICATIONS: Raiza has the nerve compression syndromes. We have done the releases on the right; she has done well with that. She now presents for the left. She understands there is risk associated with this and she was not guaranteed to have the same outcome on the left. ESTIMATED BLOOD LOSS: 2 mL. COMPLICATIONS: None. FINDINGS: See above and below. DESCRIPTION OF PROCEDURE: Ms. Monte was seen in the preoperative holding area. The correct site, side, and procedures were identified. We came back to the operating room where the arm was prepped and draped in the usual fashion and a time- out was performed. The arm was exsanguinated with the Esmarch and the tourniquet inflated. I made a 1 cm transverse incision just ulnar to the palmaris longus tendon. Dissection was carried down through the subcutaneous tissue and the distal antebrachial fascia was split transversely bluntly. A 2-prong skin hook was placed underneath the fascia. I dilated open the carpal tunnel and then the MicroAire endoscopic carpal tunnel system was introduced into the carpal tunnel. When I had it in the appropriate location, I elevated the blade and the release was completed from distal to proximal. Once I completed the release distally, I released the distal antebrachial fascia proximally with the tenotomy scissors. At this point, the release looked very good and complete. The wound was irrigated out. Skin was closed with 4-0 Prolene suture and a Steri-Strip. I then made a 2 to 3 cm transverse incision over the lacertus fibrosus proximally just distal to the antecubital flexion crease. Dissection was carried down through the subcutaneous tissue bluntly. Army-[place] retractors were placed. The lacertus fibrosus was visualized and released in its entirety. This was done with the tenotomy scissors. I completed the release distally and then proximally. At this point, everything was very looking good. There was no compression on the nerve. The wound was irrigated out. The skin was closed with 4-0 Monocryl and Steri- Strips. 0.25% Marcaine was infiltrated around all the operative areas. Soft dressings were applied and she was taken to the recovery room in stable condition. [id number]/[facility] #: [id number] TYLER
== END 2019-10-20 09:50 | disposition home or self-care (01) ==
LOC: OREAST 06:18
PROVIDERS: ATTEND Orthopaedic Surgery Hand Surgery
DX: G56.02 Carpal tunnel syndrome, left upper limb (principal); G56.12 Other lesions of median nerve, left upper limb; J45.909 Unspecified asthma, uncomplicated
CPT/HCPCS: J1100; J1240; J1885; J2250; J2405; J2704; J3010; J3490

== ENCOUNTER 2019-11-09 08:20 | Emergency (ER) | payer OTHER ==
--- OUTSIDE RECORDS SUMMARY | 2019-11-09 08:29 | XMS REPORT | Continuity of Care Document ---
:1990 External Reference #:[id number] Author Name Konstantin Orozco MD (transmitted by agent of provider Charito Nation) Address [address] [place] [id number] Care Team Providers Name Role Phone Radu Mckeon MD - Family Medicine Care Team Information College Service Officer Problems Active Problems Provider Date Sprain of wrist and/or hand Konstantin Orozco MD Onset: 09/28/2019 Lesion of median nerve Konstantin Orozco MD Onset: 08/02/2019 Bilateral carpal tunnel syndrome Konstantin Orozco MD Onset: 08/02/2019 Social History Type Date Description Comments Sex Unknown ETOH Use Denies alcohol use Tobacco Use Start: Unknown Patient has never smoked Smoking Status Reviewed: 09/28/19 Patient has never smoked Allergies, Adverse Reactions, Alerts Description No Known Drug Allergies Medications Description No Active Medications Immunizations Description No Information Available Vital Signs Date Vital Result Comment 09/28/2019 10:34am Height 64.5 inches 5'4.50" Weight 233.50 lb Heart Rate 64 /min BP Systolic 126 mmHg BP Diastolic 78 mmHg Respiratory Rate 16 /min Pain Level 6 BMI (Body Mass Index) 39.5 kg/m2 09/14/2019 9:37am Height 63.5 inches 5'3.50" Weight 232.00 lb Heart Rate 66 /min BP Systolic 128 mmHg BP Diastolic 82 mmHg Respiratory Rate 12 /min Body Temperature 97.2 F Pain Level 5 BMI (Body Mass Index) 40.4 kg/m2 Results Description No Information Available Procedures Description No Information Available Medical Devices Description No Information Available Encounters Type Date Location Provider Dx Diagnosis Office Visit 09/28/2019 [facility] Konstantin Orozco, S63.591A Other specified 10:00a at [place] sprain of right wrist, initial encounter Office Visit 08/02/2019 [facility] Konstantin Orozco, G56.03 Carpal tunnel 11:00a at [place] MD syndrome, bilateral upper limbs G56.13 Other lesions of median nerve, bilateral upper limbs Assessments Date Code Description Provider 09/28/2019 S63.591A Other specified sprain of right wrist, initial Konstantin Orozco MD encounter 09/14/2019 G56.03 Carpal tunnel syndrome, bilateral upper limbs Konstantin Orozco MD 09/14/2019 G56.13 Other lesions of median nerve, bilateral upper Konstantin Orozco MD limbs 08/02/2019 G56.03 Carpal tunnel syndrome, bilateral upper limbs Konstantin Orozco MD 08/02/2019 G56.13 Other lesions of median nerve, bilateral upper Konstantin Orozco MD limbs Plan of Treatment Future Appointment(s):10/14/2019 8:00 am - Konstantin Orozco MD at [facility] at Pbzfpsnl20/13/2020 12:45 pm - Konstantin Orozco MD at [facility] at Mfixnd3510/06/2019 8:30 am - Konstantin Orozco MD at [facility] at Dyoojx7809/28/2019 - Konstantin Orozco [id number] Other specified sprain of right wrist, initial encounterFollow up:Follow up: 3 months Functional Status Description No Information Available Mental Status Description No Information Available Referrals Description No Information Available
--- OUTSIDE RECORDS SUMMARY | 2019-11-09 08:29 | XMS REPORT | Continuity of Care Document ---
:1990 External Reference #:[id number] Author Name Konstantin Orozco MD (transmitted by agent of provider Dick Goode) Address [address] [place] [id number] Care Team Providers Name Role Phone Radu Mckeon MD - Family Medicine Care Team Information Retail Loss Prevention Specialist [phone] Problems Active Problems Provider Date Bilateral carpal tunnel syndrome Konstantin Orozco MD Onset: 08/02/2019 Lesion of median nerve Konstantin Orozco MD Onset: 08/02/2019 Sprain of wrist and/or hand Konstantin Orozco MD Onset: 09/28/2019 Social History Type Date Description Comments Sex Unknown ETOH Use Denies alcohol use Tobacco Use Start: Unknown Patient has never smoked Smoking Status Reviewed: 10/14/19 Patient has never smoked Allergies, Adverse Reactions, Alerts Active Allergies Reaction Severity Comments Date Tramadol Itching 10/14/2019 Inactive Allergies NKDA 08/02/2019 Medications Active Medications SIG Qnty Indications Ordering Provider Date No Active Medications Unknown 10/14/2019 History Medications Tramadol HCL 1-2 tablets by 20tabs Konstantin Orozco, 10/06/2019 - 50mg Tablets mouth every 6 MD 10/12/2019 hours as needed pain No Active Medications Unknown 08/02/2019 - 10/06/2019 Immunizations Description No Information Available Vital Signs Date Vital Result Comment 10/14/2019 7:47am Height 64.5 inches 5'4.50" Weight 234.00 lb Heart Rate 78 /min BP Systolic Sitting 112 mmHg BP Diastolic Sitting 66 mmHg Body Temperature 97.5 F Pain Level 5 O2 % BldC Oximetry 99 % BMI (Body Mass Index) 39.5 kg/m2 09/28/2019 10:34am Height 64.5 inches 5'4.50" Weight 233.50 lb Heart Rate 64 /min BP Systolic 126 mmHg BP Diastolic 78 mmHg Respiratory Rate 16 /min Pain Level 6 BMI (Body Mass Index) 39.5 kg/m2 Results Description No Information Available Procedures Date Code Description Status 10/06/2019 59527 Neuroplasty, Major Peripheral Nerve Arm Or Leg Completed 10/06/2019 15199 Neuroplasty, Major Peripheral Nerve Arm Or Leg Completed 10/06/2019 74250 Neuroplasty, Major Peripheral Nerve Arm Or Leg Completed 10/06/2019 11319 Neuroplasty, Major Peripheral Nerve Arm Or Leg Completed 10/06/2019 36272 Endoscopy Wrist Surg W/Release Of Transverse Carpal Completed Ligament 10/06/2019 99564 Endoscopy Wrist Surg W/Release Of Transverse Carpal Completed Ligament 10/06/2019 77808 Endoscopy Wrist Surg W/Release Of Transverse Carpal Completed Ligament 10/06/2019 85706 Endoscopy Wrist Surg W/Release Of Transverse Carpal Completed Ligament Medical Devices Description No Information Available Encounters Type Date Location Provider Dx Diagnosis Office Visit 09/28/2019 [facility] Konstantin Orozco, S63.591A Other specified 10:00a at [facility] sprain of right wrist, initial encounter Office Visit 08/02/2019 [facility] Konstantin Orozco G56.03 Carpal tunnel 11:00a at [facility] syndrome, bilateral upper limbs G56.13 Other lesions of median nerve, bilateral upper limbs Assessments Date Code Description Provider 10/14/2019 G56.03 Carpal tunnel syndrome, bilateral upper limbs Konstantin Orozco MD 10/06/2019 G56.01 Carpal tunnel syndrome, right upper limb Konstantin Orozco MD 10/06/2019 G56.01 Carpal tunnel syndrome, right upper limb TARAH Malik 10/06/2019 G56.13 Other lesions of median nerve, bilateral upper Konstantin Orozco MD limbs 10/06/2019 G56.01 Carpal tunnel syndrome, right upper limb Konstantin Orozco MD 10/06/2019 G56.13 Other lesions of median nerve, bilateral upper TARAH Malik limbs 10/06/2019 G56.13 Other lesions of median nerve, bilateral upper Konstantin Orozco MD limbs 09/28/2019 S63.591A Other specified sprain of right wrist, initial Konstantin Orozco MD encounter 09/14/2019 G56.01 Carpal tunnel syndrome, right upper limb Konstantin Orozco MD 09/14/2019 G56.13 Other lesions of median nerve, bilateral upper Konstantin Orozco MD limbs 08/02/2019 G56.03 Carpal tunnel syndrome, bilateral upper limbs Konstantin Orozco MD 08/02/2019 G56.13 Other lesions of median nerve, bilateral upper Konstantin Orozco MD limbs Plan of Treatment Future Appointment(s):11/04/2019 8:45 am - Konstantin Orozco MD at [facility] at Pmtzoxxy63/11/2020 1:00 pm - Konstantin Orozco MD at [facility] at Havivq8410/20/2019 12:45 pm - Konstantin Orozco MD at [facility] at Cfskkp3810/14/2019 - Konstantin Orozco MDG56.03 Carpal tunnel syndrome, bilateral upper limbsFollow up:Follow up: 10-14 days postop Functional Status Description No Information Available Mental Status Description No Information Available Referrals Description No Information Available
--- OUTSIDE RECORDS SUMMARY | 2019-11-09 08:29 | XMS REPORT | Continuity of Care Document ---
:1990 External Reference #:[id number] Author Name Konstantin Orozco MD (transmitted by agent of provider Dick Goode) Address [address] [place] [phone] Care Team Providers Name Role Phone Radu Mckeon MD - Family Medicine Care Team Information Liquor Rectifier Problems Active Problems Provider Date Bilateral carpal [...] Available Procedures Date Code Description Status 10/06/2019 97826 Neuroplasty, Major Peripheral Nerve Arm Or Leg Completed 10/06/2019 40101 Neuroplasty, Major Peripheral Nerve Arm Or Leg Completed 10/06/2019 99135 Neuroplasty, Major Peripheral Nerve Arm Or Leg Completed 10/06/2019 66441 Neuroplasty, Major Peripheral Nerve Arm Or Leg Completed 10/06/2019 45417 Endoscopy Wrist Surg W/Release Of Transverse Carpal Completed Ligament 10/06/2019 28140 Endoscopy Wrist Surg W/Release Of Transverse Carpal Completed Ligament 10/06/2019 22503 Endoscopy Wrist Surg W/Release Of Transverse Carpal Completed Ligament 10/06/2019 94800 Endoscopy Wrist Surg W/Release Of Transverse Carpal Completed Ligament Medical Devices Description No Information Available Encounters Type Date Location Provider Dx Diagnosis Office Visit 09/28/2019 [facility] Konstantin Orozco, S63.591A Other specified 10:00a at [facility] sprain of right wrist, initial encounter Office Visit 08/02/2019 [facility] Konstantin Orozco G56.03 Carpal tunnel 11:00a at [...] 8:45 am - Konstantin Orozco MD at [facility] at Czbcanqz70/11/2020 1:00 pm - Konstantin Orozco MD at [facility] at Ufbjom8410/20/2019 12:45 pm - Konstantin Orozco MD at [facility] at Aqizog6510/14/2019 - Konstantin Orozco MDG56.03 Carpal tunnel syndrome, bilateral upper limbsFollow up:Follow up: 10-14 days postop Functional Status Description No Information Available Mental Status Description No Information Available Referrals Description No Information Available
--- OUTSIDE RECORDS SUMMARY | 2019-11-09 08:29 | XMS REPORT | Continuity of Care Document ---
:1990 External Reference #:[id number] Author Name ARNIE JinC (transmitted by agent of provider Kyle Chavez) Address [address] [place] [address] Care Team Providers Name Role Phone Sandy Urbina PA Care Team Information Supervisor Assembly Room [phone] Jose, (Inactive) J Care Team Information Supervisor Assembly Room [phone] Problems Active Problems Provider Date Immunization Perez [...] Alerts Description No Known Drug Allergies Medications Active Medications SIG Qnty Indications Ordering Provider Date Cetirizine HCL 1 by mouth every 30tabs Natalya Centeno, 09/29/2019 10mg evening [facility] Tablets Fluticasone 2 sprays to each 48gm Natalya Centeno, 09/29/2019 Propionate nostril once [facility] 50mcg/Act daily Suspension History Medications No Active Medications Unknown 09/15/2019 - 09/29/2019 Immunizations CPT Code Status Date Vaccine Lot # [id number] Given Unknown Influenza Vaccine Vital Signs Date Vital Result Comment 09/29/2019 10:40am Height 63.75 inches 5'3.75" Weight 228.00 lb Weight 103.421 kg Respiratory Rate 18 /min Heart Rate 66 /min O2 % BldC Oximetry 99 % BP Systolic 94 mmHg BP Diastolic 63 mmHg BMI (Body Mass Index) 39.4 kg/m2 09/15/2019 9:48am Height 63.75 inches 5'3.75" Weight 228.00 lb Weight 103.421 kg Respiratory Rate 18 /min Heart Rate 74 /min O2 % BldC Oximetry 98 % BP Systolic 101 mmHg BP Diastolic 60 mmHg BMI (Body Mass Index) 39.4 kg/m2 Results Test Acquired Date Facility Test Result H/L Range Note Laboratory test 09/15/2019 [facility] Egg (Yolk) < 0.10 kU/L Class 0 finding [address] [place] [address] [phone] Egg White 0.23 kU/L Class 0/I 1 Cat Hair/Dander <0.10 kU/L Class 0 Dog Hair/Dander <0.10 kU/L Class 0 D Farinae Mite 0.37 kU/L Class I D Pteronyssinus 0.46 kU/L Class I Rast Common Silver Birch T3 <pending> Windham,White <0.10 kU/L Class 0 Maple/Langlade Ige T001 <0.10 kU/L Class 0 Luis,White <0.10 kU/L Class 0 Citrus Tree <0.10 kU/L Class 0 Elm,[place] Citizen (White) <0.10 kU/L Class 0 Queen Anne'S,White <0.10 kU/L Class 0 [place],Pearson Ige T002 <0.10 kU/L Class 0 Beech ([place] Citizen) T005 <0.10 kU/L Class 0 Rast [place] Black T10 <pending> T022 Pecan Tree <0.10 kU/L Class 0 [place] Citizen T061 <0.10 kU/L Class 0 [place],Black <0.10 kU/L Class 0 Abner <0.10 kU/L Class 0 Orchard Grass <0.10 kU/L Class 0 Ragweed,Short/ <0.10 kU/L Class 0 Bailey Elder,Rough W016 <0.10 kU/L Class 0 Rast Common Pigweed <pending> Cocklebur <0.10 kU/L Class 0 2 Rast Wagner's Quarters w10 <pending> Rast Plantain, Moldovan W9 <pending> Alternaria Alternata <0.10 kU/L Class 0 Apergillis Fumigatus Ige <0.10 kU/L Class 0 Cladosporium Herbarum <0.10 kU/L Class 0 Setomelanomma Rostrat M008 Ige <0.10 kU/L Class 0 Penicillium Not <0.10 kU/L Class 0 Allergy Flea (Cat/Dog) Ige <pending> Birch,White <0.10 kU/L Class 0 Pasco,White <0.10 kU/L Class 0 Plantain,Moldovan <0.10 kU/L Class 0 Pigweed,Rough <0.10 kU/L Class 0 Lambs Quarter <0.10 kU/L Class 0 Queen Anne'S,White <pending> [place],Black <pending> [place] Tree Ige T010 <0.10 kU/L Class 0 1 Levels of Specific IgE Class Description of Class ----- < 0.10 0 Negative 0.10 - 0.31 0/I Equivocal/Low 0.32 - 0.55 I Low 0.56 - 1.40 II Moderate 1.41 - 3.90 III High 3.91 - 19.00 IV Very High 19.01 - 100.00 V Very High >100.00 Very High 2 Test(s) [id number] Julius Luna were developed and had performance characteristics determined by [facility]. These tests have not been cleared or approved by the U.S. Food and Drug Administration. The FDA has determined that such clearance or approval is not necessary. These tests are used for clinical purposes. These should not be regarded as investigational or for research. 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 09/29/2019 J30.1 Allergic rhinitis due to pollen [place] [facility] 09/29/2019 J30.81 Allergic rhinitis due to animal (cat) Pema Farrell M.D. (dog) hair and dander 09/29/2019 J30.81 Allergic rhinitis due to animal (cat) [place] (dog) hair and dander 09/15/2019 J30.9 Allergic rhinitis, unspecified Pema Farrell M.D. 09/15/2019 J30.9 Allergic rhinitis, unspecified [place] [facility] 09/15/2019 Z91.012 Allergy to eggs Pema Farrell M.D. 09/15/2019 Z91.012 Allergy to eggs [place] [facility] Plan of Treatment Future Appointment(s):11/10/2019 9:00 am - [place] [facility] at [facility] Functional Status Description No Information Available Mental Status Description No Information Available Referrals Description No Information Available
[2019-11-09 08:34] VITALS: BP 106/59
[2019-11-09 08:46] LABS: Influenza A Molecular POSITIVE (Negative)
--- NOTE | 2019-11-09 08:49 | UC ---
Throat Pain/Nasal Nikos HPI - HPI Summary HPI Summary: sinus pain / pressure x 2 week, nasal congest, yellow / green nasal discharge, pnd bilateral ear pain and pressure , dry cough , fever, chills and body aches symptoms got worse since yesterday - History of Current Complaint Chief Complaint: UCGeneralIllness Stated Complaint: B/L EAR,COUGH,CHILLS Time Seen by Provider: 11/09/19 08:35 Hx Obtained From: Patient Hx Last Menstrual Period: 08/28/19 (b/l salpingectomy) ?: No Onset/Duration: Gradual Onset, Lasting Days - 7, Still Present, Worse Since - yesterday Severity: Severe Pain Intensity: 8 Cough: Nonproductive Associated Signs & Symptoms: Positive: Sinus Discomfort, Nasal Discharge, Fever. Negative: Dysphagia, FB Sensation, Drooling, Wheezing, Hoarseness, Rash - Allergies/Home Medications Allergies/Adverse Reactions: Allergies Allergy/AdvReac Type Severity Reaction Status Date / Time tramadol Allergy Itching Verified 11/09/19 08:34 CAT AND DOG Allergy Mild PUFF EYES Uncoded 11/09/19 08:34 SEASONAL Allergy Mild Runny Nose Uncoded 11/09/19 08:34 Home Medications: Home Medications Cetirizine* [ZyrTEC 10 MG TAB*] 10 mg PO BEDTIME 09/29/19 [History Confirmed 12/25] Fluticasone NASAL SPRAY 50MCG* [Flonase NASAL SPRAY 50MCG*] 2 spray BOTH NARES QAM 09/29/19 [History Confirmed 11/09/19] Oseltamivir Phosphate [Tamiflu] 75 mg PO BID #10 capsule 11/09/19 [Rx] PMH/Surg Hx/FS Hx/Imm Hx Respiratory History: Asthma - Surgical History Surgical History: Yes Surgery Procedure, Year, and Place: Tubal lilgation-2015. FALLOPIAN TUBES REMOVED - SEP 2016. CHOLYCYSTECTOMY-2017. TONSILLECTOMY DECEMBER 2018. carpal tunnel - Family History Known Family History: Positive: Respiratory Disease - COPD, lung CA, Other - aunt who smoked with lung cancer, Non-Contributory Negative: Cardiac Disease, Hypertension - Social History Alcohol Use: Rare Alcohol Amount: ONCE A YEAR Substance Use Type: None Smoking Status (MU): Never Smoked Tobacco Have You Smoked in the Last Year: No - Immunization History Most Recent Tetanus Shot: UTD Vaccination Up to Date: Yes Review of Systems All Other Systems Reviewed And Are Negative: Yes Constitutional: Positive: Fever, Chills, Fatigue Skin: Positive: Negative Eyes: Positive: Negative ENT: Positive: Sore Throat, Nasal Discharge Respiratory: Positive: Cough Musculoskeletal: Positive: Arthralgia, Myalgia Is Patient Immunocompromised?: No Physical Exam Triage Information Reviewed: Yes Appearance: Ill-Appearing, Obese Vital Signs: Initial Vital Signs Temp 99.0 F 11/09/19 08:29 Pulse 129 11/09/19 08:29 Resp 20 11/09/19 08:29 BP 106/59 11/09/19 08:29 Pulse Ox 97 11/09/19 08:29 Vital Signs Reviewed: Yes Eye Exam: Normal Eyes: Positive: Conjunctiva Clear ENT: Positive: Normal ENT inspection, Hearing grossly normal, Pharynx normal, Nasal congestion, Nasal drainage, TMs normal. Negative: Pharyngeal erythema, Sinus tenderness Neck: Positive: Supple, Nontender, No Lymphadenopathy Respiratory: Positive: Chest non-tender, Lungs clear, Normal breath sounds Cardiovascular: Positive: Tachycardia Skin Exam: Normal Throat Pain/Nasal Course/Dx - Differential Dx/Diagnosis Provider Diagnosis: Influenza Discharge ED - Sign-Out/Discharge Documenting (check all that apply): Patient Departure All imaging exams completed and their final reports reviewed: No Studies - Discharge Plan Condition: Stable Disposition: HOME Prescriptions: Oseltamivir Phosphate [Tamiflu] 75 mg PO BID #10 capsule Patient Education Materials: Influenza (ED) Referrals: Maryuri Newell NP [Primary Care Provider] - If Needed - Billing Disposition and Condition Condition: STABLE Disposition: Home
== END 2019-11-09 08:58 | disposition home or self-care (01) ==
LOC: UCCORT 08:20
DX: J11.1 Influenza due to unidentified influenza virus with other respiratory manifestations (principal); J45.909 Unspecified asthma, uncomplicated; Z88.5 Allergy status to narcotic agent; Z91.09 Other allergy status, other than to drugs and biological substances
CPT/HCPCS: 99212; G0463

== ENCOUNTER 2019-11-13 13:41 | Emergency (ER) | payer OTHER ==
[2019-11-13 14:23] VITALS: BP 112/70
--- NOTE | 2019-11-13 14:32 | UC ---
FLU HPI - HPI Summary HPI Summary: Diagnosed with flu on 11/09/2019. Has worsening headache, bilateral ear pain, cough and sinus pressure. Still taking tamiflu. - History of Current Complaint Chief Complaint: UCRespiratory Stated Complaint: COUGH CONGESTION F/U Time Seen by Provider: 11/13/19 14:22 Hx Obtained From: Patient Hx Last Menstrual Period: 08/28/19 (b/l salpingectomy) ?: No Onset/Duration: Sudden Onset, Lasting Days Severity Currently: Moderate Severity Initially: Moderate Pain Intensity: 6 Associated Signs & Symptoms: Positive: Myalgia, Cough, Sore Throat - Allergy/Home Medications Allergies/Adverse Reactions: Allergies Allergy/AdvReac Type Severity Reaction Status Date / Time tramadol Allergy Itching Verified 11/13/19 14:18 CAT AND DOG Allergy Mild PUFF EYES Uncoded 11/13/19 14:18 SEASONAL Allergy Mild Runny Nose Uncoded 11/13/19 14:18 Home Medications: Home Medications Oseltamivir Phosphate [Tamiflu] 75 mg PO BID #10 capsule 11/09/19 [Rx Confirmed 11/13/19] PMH/Surg Hx/FS Hx/Imm Hx Previously Healthy: Yes - Surgical History Surgical History: Yes Surgery Procedure, Year, and Place: Tubal lilgation-2015. FALLOPIAN TUBES REMOVED - SEP 2016. CHOLYCYSTECTOMY-2017. TONSILLECTOMY DECEMBER 2018. carpal tunnel - Family History Known Family History: Positive: Respiratory Disease - COPD, lung CA, Other - aunt who smoked with lung cancer, Non-Contributory Negative: Cardiac Disease, Hypertension - Social History Alcohol Use: Rare Alcohol Amount: ONCE A YEAR Substance Use Type: None Smoking Status (MU): Never Smoked Tobacco Have You Smoked in the Last Year: No - Immunization History Most Recent Tetanus Shot: UTD Vaccination Up to Date: Yes Review of Systems All Other Systems Reviewed And Are Negative: Yes Constitutional: Positive: Fever, Chills, Fatigue ENT: Positive: Sore Throat, Ear Ache Respiratory: Positive: Cough Neurological/Mental Status: Positive: Headache Is Patient Immunocompromised?: No Physical Exam Triage Information Reviewed: Yes Appearance: Well-Nourished, Ill-Appearing, Pain Distress Vital Signs: Initial Vital Signs Temp 97.4 F 11/13/19 14:19 Pulse 86 11/13/19 14:19 Resp 18 03/08/20 14:19 BP 112/70 11/13/19 14:19 Pulse Ox 99 11/13/19 14:19 Vital Signs Reviewed: Yes Eye Exam: Normal ENT: Positive: Nasal congestion, Nasal drainage Dental Exam: Normal Neck exam: Normal Respiratory Exam: Normal Respiratory: Positive: Chest non-tender, Lungs clear, Normal breath sounds Cardiovascular Exam: Normal Cardiovascular: Positive: RRR, No Murmur, Pulses Normal Abdominal Exam: Normal Bowel Sounds: Positive: Present Musculoskeletal Exam: Normal Neurological Exam: Normal Psychological Exam: Normal Skin Exam: Normal Flu Course/Dx - Course Course Of Treatment: hx obtained, exam performed ,meds reviewed, treated for symtpoms, advised rest. and use of flonase that she has not been using - Differential Dx/Diagnosis Differential Diagnosis/HQI/PQRI: Influenza Provider Diagnosis: Influenza A, Sinus pressure Discharge ED - Sign-Out/Discharge Documenting (check all that apply): Patient Departure All imaging exams completed and their final reports reviewed: No Studies - Discharge Plan Condition: Stable Disposition: HOME Patient Education Materials: Influenza (DC) Referrals: Maryuri Newell NP [Primary Care Provider] - Additional Instructions: 1. use your flonase, 2 inhalations in each nostril daily for the next 2 weeks 2. Humidify the air in your home, get outside and get fresh air 3. Continue with tylenol or ibuprofen for pain and fever. 4. Symptoms will last for about 10 day with the flu - Billing Disposition and Condition Condition: STABLE Disposition: Home
== END 2019-11-13 14:50 | disposition home or self-care (01) ==
LOC: UCCORT 13:41
DX: J10.1 Influenza due to other identified influenza virus with other respiratory manifestations (principal); R09.89 Other specified symptoms and signs involving the circulatory and respiratory systems; Z88.5 Allergy status to narcotic agent; Z91.09 Other allergy status, other than to drugs and biological substances
CPT/HCPCS: 99211; G0463

== ENCOUNTER 2019-12-02 10:07 | Emergency (ER) | payer OTHER ==
--- OUTSIDE RECORDS SUMMARY | 2019-12-02 10:41 | XMS REPORT | Continuity of Care Document ---
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 - Family Problems Description No Information Available Social History Type Date Description Comments Sex Unknown ETOH Use Denies alcohol use Tobacco Use Start: Unknown Patient has never smoked Recreational Drug Use Denies Drug Use Smoking Status Reviewed: 11/16/19 Patient has never smoked Exercise Type/Frequency Does not exercise Allergies, Adverse Reactions, Alerts Description No Known Drug Allergies Medications Active Medications SIG Qnty Indications Ordering Date Provider Miralax 1/2-1 capfull as 510gm K59.00 Maryuri Newell, 03/16/2019 3350NF Powder directed every PNP-BC, GULLET SLITTER, other day to Ibclc start in 8 oz of water Cyclobenzaprine HCL 1 by mouth three 60tabs M54.32 Maryuri Newell, 2018 10mg times a day as PNP-BC, GULLET SLITTER, Tablets needed muscle Ibclc spasms Ibu take one tablet 90tabs M54.32 Maryuri Newell, 03/16/2019 800mg Tablets by mouth three PNP-BC, GULLET SLITTER, times a day as Ibclc needed Cetirizine HCL Take One Tablet Unknown 10mg Tablets By Mouth Every Evening Fluticasone Propionate [place] 2 Sprays Unknown Into Each 50mcg/Act Suspension Nostril Once Daily Hydrocodone-Acetaminoph Take One To Two Unknown en Tablets By Mouth 5-325mg Tablets Every 6 To 8 Hours as Needed For Pain Maximum Daily Dose 6 Tramadol HCL Take One To Two Unknown 50mg Tablets Tablets By Mouth Every 6 Hours as Needed For Pain Maximum Daily Dose 6 Medications Administered in Office Medication SIG Qnty Indications Ordering Provider Date Injection Ketorolac Maryuri Newell, PNP-BC, 04/06/2019 Tromethamine 30 MG/mL GULLET SLITTER, Ibclc (Toradol) Injection Immunizations Description No Information Available Vital Signs Date Vital Result Comment 11/16/2019 8:40am BP Systolic 120 mmHg BP Diastolic 78 mmHg Body Temperature 97.0 F Heart Rate 76 /min Respiratory Rate 16 /min Height 63.5 inches 5'3.50" Weight 240.00 lb BMI (Body Mass Index) 41.8 kg/m2 BSA (Body Surface Area) 2.10 m2 [place] body weight in kilograms 53 kg O2 % BldC Oximetry 98 % 03/16/2019 9:42am BP Systolic 114 mmHg BP Diastolic 82 mmHg Body Temperature 97.3 F Heart Rate 83 /min Height 63.5 inches 5'3.50" Weight 230.25 lb BMI (Body Mass Index) 40.1 kg/m2 BSA (Body Surface Area) 2.07 m2 [place] body weight in kilograms 53 kg O2 % BldC Oximetry 97 % Results Test Acquired Date Facility Test Result H/L Range Note CBC 11/16/2019 [facility] White Blood 3.9 K/uL Normal 3.1-10.7 1 W/Automated [address] [place] [address] [phone] Red Blood Count 4.32 M/uL Normal 3.90-5.40 Hemoglobin 12.6 gm/dL Normal 11.6-15.8 Hematocrit 38.3 % Normal 36.0-46.1 Mean Cell Volume 88.7 fl Normal 80.9-99.0 Mean Corpuscular HGB 29.2 pg Normal 25.9-32.7 Mean Corpuscular HGB Conc 32.9 g/dL Normal 30.8-34.3 Platelet Count 273 K/uL Normal 155-360 Red Cell Distri Width SD 42.5 fl Normal 36-47 Red Cell Distri Width %CV 13.1 % Normal 11.7-14.4 Mean Platelet Volume 11.1 fl Normal 8.9-12.4 Neut% 52.0 % Normal 40.4-72.8 Lymph % 37.5 % Normal 20.0-42.0 [place] % 4.8 % Normal 4.3-13.2 Eo% 4.6 % Normal 0.0-6.6 Bas% 0.8 % Normal 0.0-1.1 Immature Grans 0.3 % Normal 0.0-5.0 NRBC % 0.0 /100WBC < 10/ 100 WBC Neut# 2.04 K/uL Normal 1.8-7.0 Lymph # 1.47 K/uL Normal 1.0-4.0 [place] # 0.19 K/uL Low 0.3-0.9 Eos # 0.18 K/uL Normal 0.0-0.5 Baso # 0.03 K/uL Normal 0.0-0.1 Immature Grans Absolute 0.01 K/uL NRBC # 0.00 K/uL Glycohemoglobin 11/16/2019 [facility] Glycohemoglobin 5.5 % Normal 4.2-6.3 2 A1c [address] [facility] (A1c) [place] [address] [phone] eAG 111 mg/dL LDL Cholesterol Profile 11/16/2019 [facility] Cholesterol 130 mg/dL <200 3 [address] [place] [address] [phone] Triglycerides 145 mg/dL <150 4 HDL Cholesterol 39 mg/dL Low >40 5 LDL-Cholesterol 62 mg/dL < 100 6 Comprehensive Metabolic 11/16/2019 [facility] Glucose 119 mg/dL High 74-106 Panel [address] [place] [address] [phone] BUN 15 mg/dL Normal 7-18 Creatinine 0.7 mg/dL Normal 0.6-1.3 Glom Filtration Rate, Estimate >60 mL/min >60 If >60 mL/min >60 7 BUN/Creat 21.4 ratio Sodium 137 mmol/L Normal 136-145 Potassium 3.8 mmol/L Normal 3.5-5.1 Chloride 106 mmol/L Normal 98-107 Carbon Dioxide 26 mmol/L Normal 21-32 Anion Gap 5 mEq/L Low 8-16 Calcium 8.5 mg/dL Normal 8.5-10.1 Total Protein 7.1 g/dL Normal 6.4-8.2 Albumin 3.1 g/dL Low 3.4-5.0 Globulin 4.0 g/dL Normal 1.9-4.3 Alb/Glob 0.8 ratio Bilirubin,Total 0.5 mg/dL Normal 0.2-1.0 8 Sgot/Ast 19 U/L Normal 15-37 SGPT/Alt 39 U/L Normal 12-78 Alkaline Phosphatase 31 U/L Low 45-117 Laboratory 11/09/2019 [facility] Influenza A POSITIVE Abnormal Negative 9 test finding [phone] & B Molecular 1 E66.9 2 Elevated levels of HbA1c suggest the need for more aggressive treatment of glycemia. The [place] [employer] recommends that a primary goal of therapy should be a HbA1c of <7% and that physicians should re-evaluate the treatment regimen in patients with HbA1c values consistently >8%. 3 Reference Guidelines*: Desirable: ........... < 200 mg/dL Borderline High: ..... 200-239 mg/dL High: ................ >= 240 mg/dL * The National Cholesterol Education Program (NCEP) 4 Reference Guidelines*: Normal: ............. < 150 mg/dL Borderline High: .... 150-199 mg/dL High: ............... 200-499 mg/dL Very High: .......... > 500 mg/dL * Source: National Cholesterol Education Program (NCEP) 5 Reference Guidelines*: Low HDL: ..... < 40 mg/dL Normal: ..... 40-60 mg/dL Desirable: ... > 60 mg/dL *The National Cholesterol Education Program(NCEP) 6 Reference Guidelines*: Optimal:........... <100 mg/dL Near Optimal....... 100-129 mg/dL Borderline High.... 130-159 mg/dL High............... 160-189 mg/dL Very High.......... >=190 mg/dL * Source: National Cholesterol Education Program (NCEP) 7 Note: Persistent reduction for 3 months or more in an eGFR <60 mL/min/1.73 m2 defines CKD. Patients with eGFR values >/=60 mL/min/1.73 m2 may also have CKD if evidence of persistent proteinuria is present. The original MDRD equation for estimated GFR is not valid for patients less than 18 years of age. Additional information may be found at www.kdoqi.org. 8 Please Note: Patients undergoing treatment with eltrombopag may have falsely elevated results with this assay method. 9 Tunneling Machine Operator: [id number] Procedures Description No Information Available Medical Devices Description No Information Available Encounters Type Date Location Provider Dx Diagnosis Office Visit 11/16/2019 [facility] Maryuri Newell, E66.9 Obesity, 8:40a Monico CARMONA PNP-BC, GULLET SLITTER, unspecified Ibclc Assessments Date Code Description Provider 11/16/2019 E66.9 Obesity, unspecified Maryuri Newell PNP-BC, GULLET SLITTER, Ibclc Plan of Treatment Future Appointment(s):12/21/2019 10:40 am - Maryuri Newell PNP-BC, GULLET SLITTER, Ibclc at [facility] Monico CARMONA Functional Status Description No Information Available Mental Status Description No Information Available Referrals Description No Information Available
--- OUTSIDE RECORDS SUMMARY | 2019-12-02 10:41 | XMS REPORT | Continuity of Care Document ---
:1990 External Reference #:[id number] Author Name Konstantin Orozco MD (transmitted by agent of provider Ashley Roberson) Address [address] [place] [id number] Care Team Providers Name Role Phone Radu Mckeon MD - Family Medicine Care Team Information Sports Marketing Specialist [phone] Problems Active Problems Provider Date Bilateral carpal tunnel syndrome Konstantin Orozco MD Onset: 08/02/2019 Lesion of median nerve Konstantin Orozco MD Onset: 08/02/2019 Sprain of wrist and/or hand Konstantin Orozco MD Onset: 09/28/2019 Social History Type Date Description Comments Sex Unknown ETOH Use Denies alcohol use Tobacco Use Start: Unknown Patient has never smoked Smoking Status Reviewed: 11/04/19 Patient has never smoked Allergies, Adverse Reactions, Alerts Active Allergies Reaction Severity Comments Date Tramadol Itching 10/14/2019 Inactive Allergies NKDA 08/02/2019 Medications Active Medications SIG Qnty Indications Ordering Provider Date Hydrocodone-Acetamino 1 or 2 tabs by 20malachi Orozco MD 10/20/2019 phen mouth every 6-8 5-325mg Tablets hours as needed for pain History Medications No Active Medications Unknown 10/14/2019 - 10/20/2019 Tramadol HCL 1-2 tablets by stephie Orozco, 10/06/2019 - 50mg Tablets mouth every 6 MD 10/12/2019 hours as needed pain No Active Medications Unknown 08/02/2019 - 10/06/2019 Immunizations Description No Information Available Vital Signs Date Vital Result Comment 11/04/2019 9:08am Height 64.5 inches 5'4.50" Weight 237.00 lb Heart Rate 82 /min BP Systolic 120 mmHg BP Diastolic 82 mmHg Body Temperature 97.7 F Pain Level 4 O2 % BldC Oximetry 98 % BMI (Body Mass Index) 40.0 kg/m2 10/18/2019 1:05pm Height 64.5 inches 5'4.50" Heart Rate 81 /min BP Systolic 122 mmHg BP Diastolic 80 mmHg Respiratory Rate 18 /min Body Temperature 98.1 F Pain Level 5 Results Description No Information Available Procedures Date Code Description Status 10/20/2019 57769 Neuroplasty, Major Peripheral Nerve Arm Or Leg Completed 10/20/2019 16674 Neuroplasty, Major Peripheral Nerve Arm Or Leg Completed 10/20/2019 82804 Endoscopy Wrist Surg W/Release Of Transverse Carpal Completed Ligament 10/20/2019 67655 Endoscopy Wrist Surg W/Release Of Transverse Carpal Completed Ligament 10/06/2019 37761 Neuroplasty, Major Peripheral Nerve Arm Or Leg Completed 10/06/2019 46872 Neuroplasty, Major Peripheral Nerve Arm Or Leg Completed 10/06/2019 32243 Endoscopy Wrist Surg W/Release Of Transverse Carpal Completed Ligament 10/06/2019 23306 Neuroplasty, Major Peripheral Nerve Arm Or Leg Completed 10/06/2019 76044 Neuroplasty, Major Peripheral Nerve Arm Or Leg Completed 10/06/2019 30609 Neuroplasty, Major Peripheral Nerve Arm Or Leg Completed 10/06/2019 67636 Endoscopy Wrist Surg W/Release Of Transverse Carpal Completed Ligament 10/06/2019 19570 Endoscopy Wrist Surg W/Release Of Transverse Carpal Completed Ligament 10/06/2019 98553 Endoscopy Wrist Surg W/Release Of Transverse Carpal Completed Ligament Medical Devices Description No Information Available Encounters Type Date Location Provider Dx Diagnosis Office Visit 10/18/2019 Ashlyn Orozco, S63.591D Other specified 1:00p at [facility] sprain of right wrist, subsequent encounter S63.591D Other specified sprain of right wrist, subsequent encounter Office Visit 09/28/2019 10:00a Ashlyn Pryor S63.591A Other specified at [facility] Orozco MD sprain of right wrist, initial encounter Office Visit 08/02/2019 11:00a Ashlyn Pryor G56.03 Carpal tunnel at [facility] Orozco MD syndrome, bilateral upper limbs G56.13 Other lesions of median nerve, bilateral upper limbs Assessments Date Code Description Provider 11/04/2019 G56.02 Carpal tunnel syndrome, left upper limb Konstantin Orozco MD 11/04/2019 G56.12 Other lesions of median nerve, left upper limb Konstantin Orozco MD 11/04/2019 G56.03 Carpal tunnel syndrome, bilateral upper limbs Konstantin Orozco MD 11/04/2019 G56.13 Other lesions of median nerve, bilateral upper Konstantin Orozco MD limbs 11/04/2019 Z47.89 Encounter for other orthopedic aftercare Konstantin Orozco MD 10/20/2019 G56.02 Carpal tunnel syndrome, left upper limb Konstantin Orozco MD 10/20/2019 G56.12 Other lesions of median nerve, left upper limb Konstantin Orozco MD 10/20/2019 G56.03 Carpal tunnel syndrome, bilateral upper limbs Solis Ipson, PA 10/20/2019 G56.13 Other lesions of median nerve, bilateral upper Solis Ipson , PA limbs 10/18/2019 S63.591D Other specified sprain of right wrist, Konstantin Orozco MD subsequent encounter 10/18/2019 S63.591D Other specified sprain of right wrist, Konstantin Orozco MD subsequent encounter 10/14/2019 G56.03 Carpal tunnel syndrome, bilateral upper limbs Konstantin Orozco MD 10/06/2019 G56.01 Carpal tunnel syndrome, right upper limb Solis Ipson, [place] 10/06/2019 G56.01 Carpal tunnel syndrome, right upper limb Konstantin Orozco MD 10/06/2019 G56.01 Carpal tunnel syndrome, right upper limb Konstantin Orozco MD 10/06/2019 G56.01 Carpal tunnel syndrome, right upper limb Solis Ipson, PA 10/06/2019 G56.11 Other lesions of median nerve, right upper Konstantin Orozco MD limb 10/06/2019 G56.13 Other lesions of median nerve, [...] Orozco MD limbs Plan of Treatment Future Appointment(s):12/09/2019 10:15 am - Konstantin Orozco MD at [facility] at Kuqwyhhi24/01/2020 9:15 am - Konstantin Orozco MD at [facility] at Bexwkdrb66/28/2020 - Konstantin Orozco MDG56.02 Carpal tunnel syndrome, left upper limbFollow up:Follow up: 2 qhuivzW68.12 Other lesions of median nerve, left upper limbG56.03 Carpal tunnel syndrome, bilateral upper ftvodO61.13 Other lesions of median nerve, bilateral upper ckuhrH80.89 Encounter for other orthopedic aftercare Functional Status Description No Information Available Mental Status Description No Information Available Referrals Description No Information Available
--- OUTSIDE RECORDS SUMMARY | 2019-12-02 10:41 | XMS REPORT | Continuity of Care Document ---
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 Problems Active Problems Provider Date Bilateral carpal tunnel syndrome Konstantin Orozco MD Onset: 08/02/2019 Lesion of median nerve Konstantin Orozco MD Onset: 08/02/2019 Sprain of wrist and/or hand Konstantin Orozoc MD Onset: 09/28/2019 Social History Type Date [...] Date Hydrocodone-Acetamino 1 or 2 tabs by stephie Orozco MD 10/20/2019 phen mouth every 6-8 [...] Available Procedures Date Code Description Status 10/20/2019 00053 Neuroplasty, Major Peripheral Nerve Arm Or Leg Completed 10/20/2019 66010 Neuroplasty, Major Peripheral Nerve Arm Or Leg Completed 10/20/2019 68298 Endoscopy Wrist Surg W/Release Of Transverse Carpal Completed Ligament 10/20/2019 87387 Endoscopy Wrist Surg W/Release Of Transverse Carpal Completed Ligament 10/06/2019 17289 Neuroplasty, Major Peripheral Nerve Arm Or Leg Completed 10/06/2019 92653 Neuroplasty, Major Peripheral Nerve Arm Or Leg Completed 10/06/2019 53630 Endoscopy Wrist Surg W/Release Of Transverse Carpal Completed Ligament 10/06/2019 75640 Neuroplasty, Major Peripheral Nerve Arm Or Leg Completed 10/06/2019 11206 Neuroplasty, Major Peripheral Nerve Arm Or Leg Completed 10/06/2019 47518 Neuroplasty, Major Peripheral Nerve Arm Or Leg Completed 10/06/2019 80961 Neuroplasty, Major Peripheral Nerve Arm Or Leg Completed 10/06/2019 95412 Endoscopy Wrist Surg W/Release Of Transverse Carpal Completed Ligament 10/06/2019 03428 Endoscopy Wrist Surg W/Release Of Transverse Carpal Completed Ligament 10/06/2019 19500 Endoscopy Wrist Surg W/Release Of Transverse Carpal [...] nerve, bilateral upper Konstantin Orozco MD limbs 10/20/2019 G56.02 Carpal tunnel syndrome, left upper [...] Other lesions of median nerve, right upper Solis Ipson, PA limb 10/06/2019 G56.11 Other lesions of median nerve, right upper Konstantin Orozco MD limb 10/06/2019 G56.01 Carpal tunnel syndrome, right upper [...] 10:15 am - Konstantin Orozco MD at [facility] at Dcuddhyh45/01/2020 9:15 am - Konstantin Orozco MD at [facility] at Nyuuspux38/28/2020 - Konstantin Orozco MDG56.02 Carpal tunnel syndrome, left upper limbFollow up:Follow up: 2 hlarjxO74.12 Other lesions of median nerve, left upper limbG56.03 Carpal tunnel syndrome, bilateral upper cqzobC69.13 Other lesions of median nerve, bilateral upper limbs Functional Status Description No Information Available Mental Status Description No Information Available Referrals Description No Information Available
--- OUTSIDE RECORDS SUMMARY | 2019-12-02 10:41 | XMS REPORT | Continuity of Care Document ---
:1989 External Reference #:[id number] Author Name Mary John NP (transmitted by agent of provider Kate Turner) Address [address] [place] [address] Care Team Providers Name Role Phone Simin Brand MD - Family Care Team Information Contracts Paralegal [phone] Medicine Problems Description No Information Available Social History Type Date Description Comments Sex Unknown Tobacco Use Start: Unknown Never Smoked Cigarettes ETOH Use Rare Use Of Alcohol Recreational Drug Use Denies Drug Use Allergies, Adverse Reactions, Alerts Description No Known Drug Allergies Medications Description No Active Medications Immunizations Description No Information Available Vital Signs Date Vital Result Comment 11/22/2019 11:18am Weight 231.00 lb Height 63.5 inches 5'3.50" BMI (Body Mass Index) 40.3 kg/m2 BP Systolic 93 mmHg BP Diastolic 62 mmHg Heart Rate 79 /min O2 % BldC Oximetry 97 % Pain Level 0 05/05/2019 1:29pm Weight 254.00 lb Height 63.5 inches 5'3.50" BMI (Body Mass Index) 44.3 kg/m2 BP Systolic 102 mmHg BP Diastolic 72 mmHg Heart Rate 80 /min O2 % BldC Oximetry 98 % Body Temperature 96.3 F Pain Level 0 Results Description No Information Available Procedures Description No Information Available Medical Devices Description No Information Available Encounters Description No Information Available Assessments Description No Information Available Plan of Treatment No Information Available Functional Status Description No Information Available Mental Status Description No Information Available Referrals Description No Information Available
--- OUTSIDE RECORDS SUMMARY | 2019-12-02 10:41 | XMS REPORT | Continuity of Care Document ---
:1989 External Reference #:[id number] Author Name Mary John NP (transmitted by agent of provider Lenka Roberson) Address [address] [place] [address] Care Team Providers Name Role Phone Simin Brand MD - Family Care Team Information Candy Packer Medicine Problems Description No Information Available Social [...] 0 Results Description No Information Available Procedures Date Code Description Status 11/22/2019 30210 Tympanometry Completed 11/22/2019 55019 Audiometry, Comprehensive Completed Medical Devices Description No Information Available Encounters Type Date Location Provider Dx Diagnosis Office Visit 11/22/2019 Main Office Mary John H69.93 Unspecified 11:00a DIRECTOR DIABETES Eustachian tube disorder, bilateral Assessments Date Code Description Provider 11/22/2019 H69.93 Unspecified Eustachian tube disorder, Mary John NP bilateral Plan of Treatment No Information Available Functional Status Description No Information Available Mental Status Description No Information Available Referrals Description No Information Available
--- OUTSIDE RECORDS SUMMARY | 2019-12-02 10:41 | XMS REPORT | Continuity of Care Document ---
:1989 External Reference #:[id number] Author Name Konstantin Orozco MD (transmitted by agent of provider Taylor Monge) Address [address] [place] [phone] Care Team Providers Name Role Phone Radu Mckeon MD - Family Medicine Care Team Information Assembly Hand Problems Active Problems Provider Date Bilateral carpal [...] Date Hydrocodone-Acetamino 1 or 2 tabs by 20tajono Orozco MD 10/20/2019 phen mouth every 6-8 [...] Available Procedures Date Code Description Status 10/20/2019 22271 Neuroplasty, Major Peripheral Nerve Arm Or Leg Completed 10/20/2019 35245 Neuroplasty, Major Peripheral Nerve Arm Or Leg Completed 10/20/2019 30219 Endoscopy Wrist Surg W/Release Of Transverse Carpal Completed Ligament 10/20/2019 59246 Endoscopy Wrist Surg W/Release Of Transverse Carpal Completed Ligament 10/06/2019 87517 Neuroplasty, Major Peripheral Nerve Arm Or Leg Completed 10/06/2019 39254 Neuroplasty, Major Peripheral Nerve Arm Or Leg Completed 10/06/2019 15321 Endoscopy Wrist Surg W/Release Of Transverse Carpal Completed Ligament 10/06/2019 81101 Neuroplasty, Major Peripheral Nerve Arm Or Leg Completed 10/06/2019 99228 Neuroplasty, Major Peripheral Nerve Arm Or Leg Completed 10/06/2019 92494 Neuroplasty, Major Peripheral Nerve Arm Or Leg Completed 10/06/2019 18832 Neuroplasty, Major Peripheral Nerve Arm Or Leg Completed 10/06/2019 00567 Endoscopy Wrist Surg W/Release Of Transverse Carpal Completed Ligament 10/06/2019 06737 Endoscopy Wrist Surg W/Release Of Transverse Carpal Completed Ligament 10/06/2019 63693 Endoscopy Wrist Surg W/Release Of Transverse Carpal [...] 10:15 am - Konstantin Orozco MD at [facility] at Igjdrobf86/01/2020 9:15 am - Konstantin Orozco MD at [facility] at Dmrbkonx10/28/2020 - Konstantin Orozco MDG56.02 Carpal tunnel syndrome, left upper limbFollow up:Follow up: 2 arejcaB39.12 Other lesions of median nerve, left upper limbG56.03 Carpal tunnel syndrome, bilateral upper jmeimQ38.13 Other lesions of median nerve, bilateral upper limbs Functional Status Description No Information Available Mental Status Description No Information Available Referrals Description No Information Available
--- OUTSIDE RECORDS SUMMARY | 2019-12-02 10:41 | XMS REPORT | Continuity of Care Document ---
:1990 External Reference #:[id number] Author Name Maryuri Newell, PNP-BC, [employer], Ibclc (transmitted by agent of provider Melody Knox) Address [address] [place] [id number] Care Team Providers Name Role Phone Maryuri Newell PNP-BC, [employer], Ibclc Care Team Information Cigar Head Holer - Family Problems Description No Information Available [...] Newell, 03/16/2019 [id number] Powder directed every PNP-BC, [employer], other day to Ibclc start in 8 oz of water Cyclobenzaprine HCL 1 by mouth three 60tabs M54.32 Maryuri Newell, 2018 10mg times a day as PNP-BC, [employer], Tablets needed muscle Ibclc spasms Ibu take one tablet 90tabs M54.32 Maryuri Newell, 03/16/2019 800mg Tablets by mouth three PNP-BC, [employer], times a day as Ibclc needed Cetirizine HCL Take One Tablet Unknown 10mg Tablets By Mouth Every Evening Fluticasone Propionate [place] 2 Sprays Unknown Into Each 50mcg/Act Suspension [...] Indications Ordering Provider Date Injection Ketorolac Maryuri Newell PNP-BC, 04/06/2019 Tromethamine 30 MG/mL Genie GANDHI (Toradol) Injection Immunizations Description No Information Available Vital Signs Date Vital Result Comment 11/16/2019 8:40am BP Systolic 120 mmHg BP Diastolic 78 mmHg Body Temperature 97.0 F Heart Rate 76 /min Respiratory Rate 16 /min Height 63.5 inches 5'3.50" Weight 240.00 lb BMI (Body Mass Index) 41.8 kg/m2 BSA (Body Surface Area) 2.10 m2 [place] body weight in kilograms 53 kg O2 % BldC Oximetry 98 % 03/16/2019 9:42am BP Systolic 114 mmHg BP Diastolic 82 mmHg Body Temperature 97.3 F Heart Rate 83 /min Height 63.5 inches 5'3.50" Weight 230.25 lb BMI (Body Mass Index) 40.1 kg/m2 BSA (Body Surface Area) 2.07 m2 [place] body weight in kilograms 53 kg O2 % BldC Oximetry 97 % Results Test Acquired Facility Test Result H/L Range Note Date Laboratory 11/09/2019 [facility] Influenza A POSITIVE Abnormal Negative 1 test finding [phone] & B Molecular 1 Coding Coordinator: [id number] Procedures Description No Information Available Medical Devices Description No Information Available Encounters Description No Information Available Assessments Date Code Description Provider 11/16/2019 E66.9 Obesity, unspecified Maryuri Newell PNP-BC, FNP, Ibclc Plan of Treatment Future Appointment(s):12/21/2019 10:40 am - Maryuri Newell PNP-BC, FNP, Ibclc at [facility] RD11/16/2019 - Maryuri Newell PNP-BC, FNP, IbclcE66.9 Obesity, unspecifiedNew Labs:CBC W/Automated Diff, Ordered: Glycohemoglobin A1c, Ordered: 11/16/19LDL Cholesterol Profile, Ordered: Comprehensive Metabolic Panel, Ordered: 11/16/19Comments:-First step to weight loss is assessment of your current state and your desire/willingness to change.-You may have tried many different things over your lifetime, you aren't alone. Weight management/control is hard.-Start small. Keep a diary of everything you eat for at least 3 days but a week is better and bring that back with you next time.-Find an inexpensive pedometor or even a free step counting natalie and for the same 3-7 days see how many steps you take every day and write itdown. Bring that with you too to your next appt.-Make a list of all the "diets" you have tried.-Make sure your LABS are done before your next appt. and bring the above information back with you. -First step to weight loss is assessment of your current state and your desire/willingness to change.-You may have tried many different things over your lifetime, you aren't alone. Weight management/control is hard.-Start small. Keep a diary of everything you eat for at least 3 days but a week is better and bring that backwith you next time.- Find an inexpensive pedometor or even a free step counting natalie and for the same 3-7 days see how many steps you take every day and write itdown. Bring that with you too to your next appt.-Make a list of all the "diets" you have tried.- Make sure your LABS are done before your next appt. and bring the above information back with you.Follow up:1 month 1 month Functional Status Description No Information Available Mental Status Description No Information Available Referrals Description No Information Available
--- NOTE | 2019-12-02 10:52 | UC ---
FLU HPI - History of Current Complaint Chief Complaint: UCRespiratory Stated Complaint: FLU LIKE SYMPTOMS Time Seen by Provider: 12/02/19 10:33 Hx Last Menstrual Period: 08/28/19 (b/l salpingectomy) Pain Intensity: 6 - Allergy/Home Medications Allergies/Adverse Reactions: Allergies Allergy/AdvReac Type Severity Reaction Status Date / Time tramadol Allergy Itching Verified 12/02/19 10:41 CAT AND DOG Allergy Mild PUFF EYES Uncoded 12/02/19 10:41 SEASONAL Allergy Mild Runny Nose Uncoded 12/02/19 10:41 Home Medications: Home Medications Phenylephrine/Dm/Acetaminop/GG [Cold & Flu Severe Daytime [id number] mg] 2 tab PO ONCE 12/02/19 [History Confirmed 12/02/19] PMH/Surg Hx/FS Hx/Imm Hx - Surgical History Surgical History: Yes Surgery Procedure, Year, and Place: Tubal lilgation-2015. FALLOPIAN TUBES REMOVED - SEP 2016. CHOLYCYSTECTOMY-2017. TONSILLECTOMY DECEMBER 2018. [facility]ENY carpal tunnel - Family History Known Family History: Positive: Respiratory Disease - COPD, lung CA, Other - aunt who smoked with lung cancer, Non-Contributory Negative: Cardiac Disease, Hypertension - Social History Alcohol Use: Rare Alcohol Amount: ONCE A YEAR Substance Use Type: None Smoking Status (MU): Never Smoked Tobacco Have You Smoked in the Last Year: No - Immunization History Most Recent Tetanus Shot: UTD Vaccination Up to Date: Yes Discharge ED - Discharge Plan Referrals: Maryuri Newell NP [Primary Care Provider] -
--- NOTE | 2019-12-02 11:01 | UC ---
[facility] HPI HPI Summary: 29-year-old female who had influenza which was documented here on November 09, 2019. She states she fully recovered from that illness however the past 2 or 3 days she has had flulike symptoms again. She is presently unemployed since September. Today she had a fever of 100.6, body aches, and nasal congestion. She does not smoke. She cannot remember if she received a flu shot in the fall. She states she has a mild nonproductive cough. She is not short of breath however she does have a lot of nasal congestion which makes breathing through her nose more difficult. She denies any exposure to anyone with illness. She also denies exposure to anyone with Covid 19. [facility] PMH Previously Healthy: Yes Endocrine/Hematology History: Denies: Hx Diabetes, Hx Thyroid Disease Cardiovascular History: Denies: Hx Hypertension, Hx Pacemaker/ICD, Hx Valvular Heart Disease, Other Cardiovascular Problems/Disorders Respiratory History: Reports: Hx Asthma - HX OF A CHILDHOOD Denies: Hx Chronic Obstructive Pulmonary Disease (COPD), Other Respiratory Problems/Disorders GI History: Denies: Hx Ulcer, Other GI Disorders History: Denies: Hx Dialysis, Hx Renal Disease, Other Problems/Disorders Musculoskeletal History: Reports: Other Musculoskeletal History - HX OF CARPAL TUNNEL BOTH WRISTS Denies: Hx Tendonitis Sensory History: Reports: Hx Contacts or Glasses - CONTACTS Denies: Hx Hearing Aid Opthamlomology History: Reports: Hx Contacts or Glasses - CONTACTS Neurological History: Denies: Other Neuro Impairments/Disorders Psychiatric History: Denies: Hx Panic Disorder - Surgical History Surgery Procedure, Year, and Place: Tubal lilgation-2015. FALLOPIAN TUBES REMOVED - SEP 2016. CHOLYCYSTECTOMY-2017. TONSILLECTOMY DECEMBER 2018. LENY carpal tunnel Hx Anesthesia Reactions: Yes - 09/2016 REACTION X1-CHRONIC GI UPSET-TX AVOIDING EGGS X1 YR-NO PROBLEM SINCE Infectious Disease History: No - Family History Known Family History: Positive: Respiratory Disease - COPD, lung CA, Other - aunt who smoked with lung cancer, Non-Contributory Negative: Cardiac Disease, Hypertension - Social History Alcohol Use: Rare Alcohol Amount: ONCE A YEAR Substance Use Type: Reports: None Smoking Status (MU): Never Smoked Tobacco Have You Smoked in the Last Year: No [facility] ROS All Other Systems Reviewed And Are Negative: Yes Positive: Fever, Chills, Fatigue Positive: Ear Ache, Nasal Discharge Positive: Cough - nonproductive cough. Positive: no symptoms reported Positive: Myalgia Neurological/Mental Status: Negative Psychological: Normal Telehealth PE Appearance: Positive: Well-Appearing, Alert and Oriented, No Pain Distress Skin: Positive: Warm Eyes: Positive: Normal ENT: Positive: Hearing grossly normal, Other - Right TM with scarring and pearly ingram, Left TM ingram Respiratory/Lung Sounds: Negative: Normal Respiratory Effort - ELISSA Arita auscultated lung and they were CTA and no distress Cardiovascular: Positive: Skin Color Reflects Adequate Perfusion Musculoskeletal: Positive: Normal Tone Neurological: Positive: Alert, Oriented to Person Place, Time Psychiatric: Positive: Normal - Pt appears well on Ipad teleconference and in no distress [facility] Course/Dx Assessment/Plan: Rapid strep test: Negative Rapid flu test: Negative Covid test obtained: pending The patient is comfortable here and in no distress. She ambulates without difficulty. She is to go home and practice all of the instructions with the Covid testing. She usually gets other children on the weekend and I advised her they should stay with the other parent and not around her until she has the Covid testing results. Patient is agreeable to this plan of action. She was discharged ambulatory. Provider Diagnoses: Flu-like symptoms [facility] Disposition Provider Recommendation for Treatment: Urgent Care Telehealth Visit: Patient Consented Verbally to Telehealth Visit Telehealth Patient Statement: The patient should understand that they are communicating with their provider via a secure communication platform and that all the same privacy and confidentiality rules apply. They will also be responsible for copayments or coinsurances that apply to any Telehealth visit. Patient Identifiers: 2 Patient Identifiers Verified for Telehealth Visit Telehealth Visit Start Time: 11:35 Telehealth Visit End Time: 11:50 Telehealth Provider Attestation: The above services were appropriate to provide in a Telehealth setting.
[2019-12-02 11:20] VITALS: BP 101/85
[2019-12-02 11:27] LABS: Influenza A Molecular Negative (Negative); Influenza B Molecular Negative (Negative)
== END 2019-12-02 11:50 | disposition home or self-care (01) ==
LOC: UCCORT 10:07
DX: R50.9 Fever, unspecified (principal); M79.10 Myalgia, unspecified site; R09.81 Nasal congestion; R05 Cough; Z20.828 Contact with and (suspected) exposure to other viral communicable diseases
CPT/HCPCS: 87635; 87651; 99211; G0463; Q3014

== ENCOUNTER 2021-07-10 10:36 | Inpatient (IN) ==
[~2021-07-10 10:36] MED LIST changes: +Buffered Lidocaine 1% SYRIN 1 ml INTRADERM ONE; -Buffered Lidocaine 1% SYRIN* 1 ML/SYRINGE INTRADERM ONE; -Dexamethasone IV* 4 MG/ML 1 ML (4 MG) IV SLOW PU ONE; -Dexamethasone IV* 4 MG/ML 1 ML (4 MG) ONE; +Famotidine IV 10 MG/ML 2 ml VIAL (20 mg) IV ONE; -Famotidine IV* 10 MG/ML 2 ML (20 mg) IV ONE; -Famotidine IV* 10 MG/ML 2 ML (20 mg) ONE; -Lactated Ringers 1000 ML Bag* 1,000 ML IV SCH; +Lactated Ringers 1000 ml BAG 1,000 ML IV SCH
[2021-07-10] MEDS ORDERED: Rocuronium 50 mg VIAL 10 mg/ml 5 ml VIAL (50 mg) ONE (11:07)
[2021-07-10] MEDS ORDERED: Heparin 5000 UNITS/ML 1 mL VIAL ONE (11:09)
[2021-07-10] MEDS ORDERED: ceFAZolin 2 GM in NS PREMIX 2 GM/100 ML BAG IVPB ONE (11:09)
[2021-07-10] MEDS ORDERED: ceFAZolin 1 GM ADVAN 1 GM ADDV.VIAL IVPB ONE (11:09)
[2021-07-10] MEDS ORDERED: Famotidine IV 10 MG/ML 2 ml VIAL (20 mg) ONE (11:09)
[2021-07-10] MEDS ORDERED: Midazolam 2 mg/2 ml VIAL 1 mg/ml 2 ml VIAL (2 mg) ONE (11:15)
[2021-07-10] MEDS ORDERED: Propofol 10 MG/ML 20 ML BTL ONE (11:15)
[2021-07-10] MEDS ORDERED: Lidocaine 2% PF 5 ML VIAL ONE (11:15)
[2021-07-10] MEDS ORDERED: fentaNYL 250 mcg/5 ml 50 MCG/ML 5 ml VIAL (250 MCG) ONE (11:15)
[2021-07-10] MEDS ORDERED: Dexamethasone IV 4 MG/ML VIAL 1 ml VIAL ONE (11:15)
[2021-07-10] MEDS ORDERED: Ondansetron 4 mg VIAL 2 MG/ML 2 ml VIAL ONE ×2 (11:15→15:26)
[2021-07-10] MEDS ORDERED: Methylene Blue 0.5 % 50 MG/10 ML AMP IV ONE (11:19)
[2021-07-10] MEDS ORDERED: Bupivacaine 0.5% SDV PF 30ML VIAL ONE (11:19)
[2021-07-10] MEDS ORDERED: Lidocaine 1% w EPI 1:200,000 SDV 30 ML VIAL ONE (11:19)
[2021-07-10] MEDS ORDERED: Labetalol IV 5 MG/ML 20 ml VIAL ONE (12:49)
[2021-07-10] MEDS ORDERED: Acetaminophen IV 1 GM/100ML 100 ML IV ONE (12:49)
[2021-07-10] MEDS ORDERED: HYDROmorphone 1 MG/1 ML SYRINGE ONE (13:57)
[2021-07-10] MEDS ORDERED: HYDROcodone/ACET. 7.5/325 LIQ 15 ML UDC PO PRN (15:06)
[2021-07-10] MEDS ORDERED: HYDROmorphone 0.5 MG/0.5 ML SYRINGE IV SLOW PU PRN (15:06)
[2021-07-10] MEDS ORDERED: fentaNYL 100 mcg/2 ml 50 MCG/ML VIAL ONE ×2 (15:26→15:41)
[2021-07-10] MEDS ORDERED: DiMENhydriNATE IV 50 mg/ml 1 ml VIAL ONE (15:26)
[2021-07-10] MEDS ORDERED: diPHENhydraMINE IV 50 MG/ML 1 ml VIAL (BENADRYL) ONE (15:26)
[2021-07-10] MEDS ORDERED: Naloxone 0.4 mg VIAL 0.4 mg/ml 1 ml VIAL IV PRN (15:26)
[2021-07-10] MEDS ORDERED: Ondansetron 4 mg VIAL 2 MG/ML 2 ml VIAL IV PRN (15:26)
[2021-07-10] MEDS ORDERED: DiMENhydriNATE IV 50 mg/ml 1 ml VIAL IV PUSH PRN (15:26)
[2021-07-10] MEDS: fentaNYL 100 mcg/2 ml 50 MCG/ML VIAL IV PRN ×4 (15:28→15:55)
[2021-07-10] MEDS ORDERED: Prochlorperazine 5 mg/ml 2 ml VIAL (10 mg) ONE (16:08)
[2021-07-10] MEDS ORDERED: Prochlorperazine 5 mg/ml 2 ml VIAL (10 mg) IV PRN (16:12)
[2021-07-10] MEDS: Lactated Ringers 1000 ml BAG 1,000 ML IV SCH ×2 (18:02→23:51)
[2021-07-10] MEDS: Ondansetron 4 mg VIAL 2 MG/ML 2 ml VIAL IV PRN (21:38)
[2021-07-10] MEDS: Heparin 5000 UNITS/ML 1 mL VIAL SUBCUT SCH (21:38)
[2021-07-11] MEDS: Lactated Ringers 1000 ml BAG 1,000 ML IV SCH ×2 (05:57→12:37)
[2021-07-11] MEDS: Ondansetron 4 mg VIAL 2 MG/ML 2 ml VIAL IV PRN (06:05)
[2021-07-11] MEDS: Heparin 5000 UNITS/ML 1 mL VIAL SUBCUT SCH ×2 (08:40→15:21)
[2021-07-11 12:10] VITALS: BP 123/68
[2021-07-11] MEDS ORDERED: D5W 1/2 NS KCl 20 meq 1000 ml 1,000 ML IV SCH (16:00)
[2021-07-13] MEDS ORDERED: Scopolamine PATCH Remove NOTE PATCH OFF ONE (06:00)
== END 2021-07-11 16:45 | disposition home or self-care (01) | DRG 403 ==
LOC: AA 10:36 → SSU 15:06
PROVIDERS: ADMIT Surgery; ATTEND Surgery